=== PATIENT | female | born 1955 | race Caucasian/White ===

== ENCOUNTER → 2016-12-09 | Outpatient (CLI) | payer OTHER, BC ==
[~2016-12-09] MED LIST: AMIT25TA9 PO; BACL1TAB PO; BUPR300T43 PO; CHOL20009 PO; HYDR-4079 PO; LEVO150T9 PO; MELO15TA4 PO; NXM/40 PO; PSYL0.524 PO
--- NOTE | 2016-12-10 05:59 | PAP/PSG TECHNICIAN REPORT ---
[facility] Tension Worker Polysomnogram Report Study name: None Report date: 12/10/2016 Study date: 12/09/2016 Referring Physician: Gil Gusman M.D. Name: KARIS MEDRANO Interpreting Physician: Hilary Gusman M.D. Date of : 1955 Tension Worker: Princess Pizano [facility]. Sex: Female Age: 61 StudyType: PSG PAP Weight: 240 lbs Height: 61 years, Height 5' 6" : BMI: 38.73 Medications: Bethanechol 10 mg, Nexium 40 mg, Lipitor 20 mg, Elavil 100 mg, Fentanyl 25, Levoxyl 125 mcg, Wellbutrin 300 mg, Ultram 50 mg, Strattera 40 mg, Patrizia-Collace, Lioresal 10 mg, Aspirin 81 mg, Vitamin D Patient History 61 yr. old female here for a titration sleep study due to an increased AHI since starting Fentanyl. Patient sleeps in a recliner at home. Patient recently fell asleep on the edge of her chair before butting on her mask, and fell forward hitting her nose. Before that she was visiting her daughter and fell asleep at the side of the bed and fell backwards sleeping with feet dangling over the side of the bed for three hours. Parameters Monitored NPSG: E1-M2, E2-M1, Fp1-M2, Fp2-M1, F3-M2, F4-M2, F4-M1, C3-M2, C4-M2, C4-M1, O1-M2, O2-M2, O2-M1, T3-M2, T4-M1, P3-M2, P4-M1, CHIN1, CHIN2, HR, EKG, Legs, PFLOW, SNOR, FLOW, CFLOW, Tidal Volume, THOR, ABDO, SpO2, PLTH, CPRESS, ETCO2 Wave, ETCO2, pH Sleep Architecture Sleep Stages Time at Lights Off 10:39:15 PM STAGES Time (min.) TST (%) Time at Lights On 5:47:15 AM Wake 44.0 -- Total Recording Time (TRT) 428.00 min. N1 19.0 5 Total Sleep Period (TSP) 423.0 min. N2 156.5 41 Total Sleep Time (TST) 384.0min. N3 131.0 34 Awake Time 44.0 min. REM 77.5 20 Wake after Sleep Onset 39.0 min. Sleep Efficiency (SE) 90 % Sleep Onset Latency (COURT) 5.0 min. Number of Stage 1 Shifts None Awakenings 14 Stage Changes 97 Number of REM periods 10 REM 77.5 20 REM Latency 69.0 min. NREM 306.5 80 Body Position Analysis Supine Right Left Side Prone Vertical Total Sleep Time (min.) 0.0 0.0 0.0 0.00 0.0 428.0 Total Sleep Time (%) 0% 0% 0% 0 0% 100% Total Sleep Time REM (min.) 0.0 0.0 0.0 None 0.0 77.5 Total Sleep Time NREM (min.) 0.0 0.0 0.0 None 0.0 306.5 Intermittent Wake (min.) 0.0 0.0 0.0 None 0.0 44.0 Total Sleep Period (%) 0% None None None None None Arousals Myoclonus (PLM) * Events Count Index Events Count Index Spontaneous 5 1 Events Awake (PLMW) 52 70.9 Respiratory 19 3.6 Events Asleep w/ Arousal (PLMA) 16 2.5 PLM 15 3 Events Asleep w/o Arousal (PLMS) 90 14.1 Snoring 3 0 Total Asleep 106 16.6 Total 42 7 Total 158 22 Respiratory Analysis * CA OA MA CH H RERA Total Count 2 45 0 0 46 0 93 Index 0.3 7.0 0.0 0 7.2 0 14.5 Mean Duration 15.5 52.6 0.0 0.00 31.7 0.0 41.4 Longest Duration 18.8 102.2 0.0 0.00 0.0 0.0 102.2 Respiratory Event Summary Total Supine ~Supine Right Left Prone REM NREM Apneas Count 47 N/A 47 N/A N/A N/A 33 14 Index 7.3 N/A 7 N/A N/A N/A 26 3 Hypopneas (4% Desat) Count 46 N/A 46 N/A N/A N/A 5 41 Index 7.2 N/A 7 N/A N/A N/A 3.9 8.0 Apneas & All Hypopneas Count 93 N/A 93 N/A N/A N/A 38 55 Index 14.5 N/A 15 N/A N/A N/A 29.4 10.8 Respiratory Events (Machine Ironer+All Hyp+RERA) Count 93 N/A 93 N/A N/A N/A 38 55 Index 14.5 N/A 15 N/A N/A N/A 29.4 10.8 Respiratory Related Arousal Count 19 N/A 23 N/A N/A N/A 11 12 Index 3.6 N/A 4 N/A N/A N/A 9 2 Snoring Analysis Supine Right Left Prone REM NREM Total Snore duration 4.1 min Snores count N/A N/A N/A N/A 73 66 139 Snore mean duration 1.8 Sec Snores index N/A N/A N/A N/A 56.5 12.9 21.7 TST with snoring (%) 1.1% Desaturation Event Summary: Minimum %SpO2 Event Count Mean/Min/Max Duration(sec.) Desaturation Index % Time In Bed > 90 82 37.7 / 8.8 / 60.0 13.2 88.6 86 - 90 6 31.7 / 19.5 / 39.0 13.4 6.4 81 - 85 0 N/A 0.0 3.4 76 - 80 0 N/A 0.0 1.2 71 - 75 0 N/A 0.0 0.3 66 - 70 0 N/A 0.0 0.1 61 - 65 0 N/A 0.0 0.0 56 - 60 0 N/A 0.0 0.0 51 - 55 0 N/A 0.0 0.0 < 50 0 N/A 0.0 0.0 Total REM NREM Awake <50% 0.0 min. 0.0 min. 0.0 min. 0.0 min. 51 - 60% 0.0 min. 0.0 min. 0.0 min. 0.0 min. 61 - 70% 0.3 min. 0.2 min. 0.2 min. 0.0 min. 71 - 80% 6.4 min. 2.7 min. 3.0 min. 0.7 min. 81 - 90% 41.3 min. 15.7 min. 23.0 min. 2.6 min. 91 - 100% 372.6 min. 59.0 min. 280.3 min. 33.3 min. Average 93 94 93 95 Minimum SpO2 68 68 68 76 Desaturation Event Index 11.6 15.5 9.6 20.5 # Desat. Events below 89% 49 14 32 3 Time(%) with Saturation below 89% 8.5 3.4 4.4 0.7 Time(min.) with Saturation below 89% 35.6 14.2 18.6 2.8 Time (mins) REM (mins) NREM (mins) % of TST SpO2 Below 90% 50 16 N34 10.0 SpO2 Below 88% 33 0 0 7 Heart Rate Analysis Min (bpm) Max (bpm) Average (bpm) Awake 54 93 75 NREM 56 85 73 REM 53 80 69 Overall 53 85 72 Supplemental O2 Values Minimum O2 level: None Value Start Time End Time Tension Worker Comments MS. Medrano slept in upright position. No cardiac arrhythmia. PLMs noted. No bruxism noted. CPAP was initiated at +4 CMH2O and quickly increase to +12 CMH2O( order stated to start on +12 CMH2O). MS. Medrano was up-titrated to a level of +15 CMH2O Cflex 2, she was having consistent apneas in REM and was switched to BIPAP. IPAP of +20 CMH2O and an EPAP of + 15 CMH2O up-titrated to a level of: IPAP +27 CMH2O, EPAP + 22 CMH20, this did not eliminate events in REM and snores were heard. MS. Pereyra own Katie View full face mask was used. MS. Medrano awoke to use the restroom once during the night. MS. Medrano stated, that was a normal night. The final report will be interpreted and signed by a sleep physician. The completed physician report will then be placed in the patient medical record. Therapy Event: Therapy (cm H20) 4 6 7 8 10 12 13 14 15 Total Time at Pressure (min.) 5.5 7.0 0.2 1.6 3.5 36.2 12.1 8.0 6.9 TST at Pressure (min.) 0.5 3.5 0.2 1.6 2.7 35.6 12.1 8.0 6.4 # Periods 1 1 1 1 1 1 1 1 1 Sleep Onset (min.) 5.0 0.0 0.0 0.0 0.0 0.1 0.0 0.0 0.0 REM Onset (min.) N/A N/A N/A N/A N/A N/A N/A 7.8 0.0 Sleep Efficiency % 9 50 100 100 75 98 100 100 92 Wakefulness (%) 90.6 49.9 0.0 0.0 24.2 1.8 0.0 0.0 7.2 Wakefulness (min.) 5.0 3.5 0.0 0.0 0.9 0.6 0.0 0.0 0.5 NREM 1 (%) 9.4 42.5 0.0 0.0 14.2 2.8 0.0 0.0 21.7 NREM 1 (min.) 0.5 3.0 0.0 0.0 0.5 1.0 0.0 0.0 1.5 NREM 2 (%) 0.0 7.6 100.0 100.0 61.7 58.2 32.5 75.5 44.2 NREM 2 (min.) 0.0 0.5 0.2 1.6 2.2 21.1 3.9 6.0 3.0 NREM 3 (%) 0.0 0.0 0.0 0.0 0.0 37.3 67.5 22.6 0.0 NREM 3 (min.) 0.0 0.0 0.0 0.0 0.0 13.5 8.2 1.8 0.0 REM (%) 0.0 0.0 0.0 0.0 0.0 0.0 0.0 1.9 26.8 REM (min.) 0.0 0.0 0.0 0.0 0.0 0.0 0.0 0.2 1.8 # Arousals 0 1 0 0 2 5 4 2 4 Arousal Index 0.0 17.1 0.0 0.0 44.9 8.4 19.8 15.1 37.5 # Snore 0 0 0 2 2 9 6 5 12 Snore Index 0.0 0.0 0.0 76.3 44.9 15.2 29.6 37.7 112.5 AHI 0.0 17.1 0.0 38.2 44.9 23.6 19.8 45.3 37.5 AHI Supine N/A N/A N/A N/A N/A N/A N/A N/A N/A AHI Non-Supine 0.0 17.1 0.0 38.2 44.9 23.6 19.8 45.3 37.5 NREM AHI 0.0 17.1 0.0 38.2 44.9 23.6 19.8 46.2 39.6 REM AHI N/A N/A N/A N/A N/A N/A N/A 0.0 32.4 RDI 0.0 17.1 0.0 38.2 44.9 23.6 19.8 45.3 37.5 # Obstructive 0 0 0 0 0 0 0 5 3 # Central Ap 0 0 0 0 0 0 0 0 0 # Mixed 0 0 0 0 0 0 0 0 0 # Hypopneas 0 1 0 1 2 14 4 1 1 RERAS 0 0 0 0 0 0 0 0 0 Total Respiratory Events 0 1 0 1 2 14 4 6 4 Time Below SpO2 89.00% (min.) 0.0 0.2 0.0 0.4 0.5 5.0 2.0 1.9 2.7 Mean NREM SpO2 (%) 96 92 92 90 91 92 92 93 90 Mean REM SpO2 (%) N/A N/A N/A N/A N/A N/A N/A 96 88 Mean Sleep SpO2 (%) 96 92 92 90 91 92 92 93 89 Min NREM SpO2 (%) 93 88 90 87 84 78 78 76 68 Min REM SpO2 (%) N/A N/A N/A N/A N/A N/A N/A 91 73 Position Supine (min.) 0.0 0.0 0.0 0.0 0.0 0.0 0.0 0.0 0.0 Position Non-supine (min.) 0.5 3.5 0.2 1.6 2.7 35.6 12.1 8.0 6.4 LM Index Sleep 0.0 34.2 0.0 76.3 67.3 15.2 24.7 45.3 46.9 LM Index NREM 0.0 34.2 0.0 76.3 67.3 15.2 24.7 46.2 39.6 LM Index REM N/A N/A N/A N/A N/A N/A N/A 0.0 64.9 Mean Heart Rate (bpm) 76 74 75 75 73 75 72 71 68 Min Heart Rate (bpm) 72 71 73 72 62 60 59 58 56 Therapy (cm H20) /16 // Total Time at Pressure (min.) 10.2 12.4 17.3 72.6 45.4 47.9 11.2 9.9 120.0 TST at Pressure (min.) 10.2 11.9 17.3 72.1 44.9 46.9 11.2 9.9 89.0 # Periods 1 1 1 1 1 1 1 1 1 Sleep Onset (min.) 0.0 0.0 0.0 0.0 0.0 0.0 0.0 0.0 0.0 REM Onset (min.) 3.0 0.2 0.0 0.0 N/A 46.0 0.0 0.0 0.0 Sleep Efficiency % 100 96 100 99 98 97 100 100 74 Wakefulness (%) 0.0 4.0 0.0 0.7 1.1 2.1 0.0 0.0 25.8 Wakefulness (min.) 0.0 0.5 0.0 0.5 0.5 1.0 0.0 0.0 31.0 NREM 1 (%) 19.5 8.1 2.9 3.4 2.2 1.0 0.0 4.8 3.8 NREM 1 (min.) 2.0 1.0 0.5 2.5 1.0 0.5 0.0 0.5 4.5 NREM 2 (%) 41.4 1.7 0.0 24.2 38.4 16.7 0.0 0.0 58.7 NREM 2 (min.) 4.2 0.2 0.0 17.6 17.4 8.0 0.0 0.0 70.5 NREM 3 (%) 0.0 0.0 0.0 61.3 58.3 76.3 0.0 0.0 0.0 NREM 3 (min.) 0.0 0.0 0.0 44.5 26.5 36.5 0.0 0.0 0.0 REM (%) 39.0 86.2 97.1 10.4 0.0 3.9 100.0 95.2 11.7 REM (min.) 4.0 10.7 16.8 7.5 0.0 1.9 11.2 9.4 14.0 # Arousals 4 1 1 5 2 2 1 2 6 Arousal Index 23.4 5.1 3.5 4.2 2.7 2.6 5.4 12.1 4.0 # Snore 14 15 18 7 4 5 17 16 7 Snore Index 82.0 75.9 62.3 5.8 5.3 6.4 91.0 97.1 4.7 AHI 41.0 40.5 31.2 7.5 6.7 6.4 32.1 36.4 4.0 AHI Supine N/A N/A N/A N/A N/A N/A N/A N/A N/A AHI Non-Supine 41.0 40.5 31.2 7.5 6.7 6.4 32.1 36.4 4.0 NREM AHI 38.4 49.8 0.0 6.5 6.7 5.3 N/A 0.0 2.4 REM AHI 45.0 39.4 32.1 16.0 N/A 32.0 32.1 38.2 12.9 RDI 41.0 40.5 31.2 7.5 6.7 6.4 32.1 36.4 4.0 # Obstructive 6 7 9 2 0 2 6 4 1 # Central Ap 0 0 0 1 0 0 0 0 1 # Mixed 0 0 0 0 0 0 0 0 0 # Hypopneas 1 1 0 6 5 3 0 2 4 RERAS 0 0 0 0 0 0 0 0 0 Total Respiratory Events 7 8 9 9 5 5 6 6 6 Time Below SpO2 89.00% (min.) 3.4 3.0 3.1 2.7 1.2 0.5 4.4 1.6 0.4 Mean NREM SpO2 (%) 91 83 97 93 94 94 N/A 91 94 Mean REM SpO2 (%) 91 94 94 95 N/A 94 90 94 97 Mean Sleep SpO2 (%) 91 93 94 94 94 94 90 94 94 Min NREM SpO2 (%) 68 75 95 85 85 83 N/A 86 83 Min REM SpO2 (%) 79 77 77 79 N/A 84 68 76 85 Position Supine (min.) 0.0 0.0 0.0 0.0 0.0 0.0 0.0 0.0 0.0 Position Non-supine (min.) 10.2 11.9 17.3 72.1 44.9 46.9 11.2 9.9 89.0 LM Index Sleep 52.7 40.5 45.0 6.7 4.0 5.1 53.5 66.7 5.4 LM Index NREM 57.6 49.8 0.0 3.7 4.0 2.7 N/A 0.0 4.8 LM Index REM 45.0 39.4 46.4 31.9 N/A 64.1 53.5 70.1 8.6 Mean Heart Rate (bpm) 67 69 69 75 74 71 68 70 73 Min Heart Rate (bpm) 53 54 53 55 57 56 53 57 59
--- NOTE | 2016-12-18 15:39 | POLYSOMNOGRAPH REPORT ---
CPAP TITRATION STUDY REFERRING PERSON: Dr. Javad Gusman. CORPORATE SECURITY MANAGER: Princess Pizano. Ms. Medrano is a 61-year-old female sent for a CPAP titration study as she started to have increasing AHIs on therapy since starting fentanyl. She sleeps in a recliner at home and will be tested in the upright position on this test. Her [place] sleepiness scale score on the evening of this study is not recorded. BMI is 38.73. Following the technical and digital specifications of the [employer] (AASM) a standard diagnostic polysomnogram was performed monitoring EEG, EOG, EMG (chin and leg deviations), oxygen saturation, body position, digital video, respiratory effort and airflow. The sleep Stage and event scoring was based on the AASM Manual for the Scoring of Sleep and Associated Events 2007 edition. Apneas are defined as a drop in the peak thermal sensor excursion by >90% of baseline for at least 10 seconds. Hypopneas were scored using the 4% oxygen desaturation rule (4A-[employer]) and a decrease in the nasal pressure excursions by >30% of baseline for at least 10 seconds. Respiratory effort-related arousal (RERA's) is defined as a sequence of breaths lasting at least 10 seconds characterized by increasing respiratory effort or flattening of the nasal pressure waveform leading to an arousal from sleep when the sequence of breaths does not meet criteria for an apnea or hypopnea. Apnea Hypopnea index (AHI) is defined as the number of apneas and hypopneas occurring in an hour of sleep. Respiratory disturbance index (RDI) is defined as the number of apneas, hypopneas, and RERA's occurring in an hour of sleep. Ms. Medrano's total sleep period time was 423 minutes. Total sleep time was 384 minutes. Sleep efficiency was 90%. Latency to sleep onset was 5 minutes with wake after sleep onset was 39 minutes. Total non-REM sleep time was 306.5 minutes. She spent 5% of that time in N1 sleep, 41% in N2 sleep and 34% in N3 sleep. REM latency was 69 minutes. Total REM sleep time was 77.5 minutes or 20% of total sleep time. There were 42 cortical arousals from sleep. Five of these arousals were spontaneous, 19 were due to respiratory events, 15 due to periodic limb movements of sleep and 3 were due to snoring. There were 106 periodic limb movements noted on this test. Limb movement index was 16.6. Limb movement with arousal index was 2.5. There were 2 central, 45 obstructive and no mixed apneas noted on this titration. Additionally, there were 46 hypopneas. Apnea-hypopnea index was 14.5. 139 snoring events were recorded. Total sleep time with snoring was 1.1%. Mean saturation was 93% with desaturations briefly to 68 %. Saturations were less than 89% for 35.6 minutes of recorded time. There was no cardiac ectopy noted on this study. Heart rates ranged from a low of 53 beats per minute during sleep to a high of 85 beats per minute. Ms. Medrano slept in the upright position. She was initially started on CPAP therapy and quickly increased to a pressure of 12, which is where the physician order wanted her study to start. She was then increased to 15 for obstructive events which appeared during REM sleep and then was switched to bilevel therapy. She was then titrated on bilevel from 20/15 to a high pressure of 27/22. Central apneas were not noted with the addition of the fentanyl patch. She used her Katie View mask for the titration. On a pressure of 27/22, Ms. Medrano was observed for 89 minutes of sleep. There were 14 minutes of non-supine REM sleep (patient slept upright all night) on this pressure. AHI and RDI on this pressure were 4.0, respectively. Saturations were less than 89 for 0.4 minutes of recorded time. IMPRESSION AND PLAN: A 61-year-old female with a history of obstructive sleep apnea who appears to need bilevel therapy at high pressures of 27/22 to eliminate her obstructive sleep apnea. The addition of a fentanyl patch did not seem to cause central apneas in this patient. I would recommend that she be started on bilevel at 27/22 at home. A download from her machine can be reviewed in 1 month both to check compliance as well as apnea-hypopnea index and further pressure adjustments can occur at that time.
== END | disposition home or self-care (01) ==
LOC: C.NEUR 21:00
PROVIDERS: ATTEND Family Medicine
DX: G47.33 Obstructive sleep apnea (adult) (pediatric) (principal)

== ENCOUNTER 2025-03-15 13:50 | Inpatient (IN) ==
--- NOTE | 2025-03-15 14:00 | Emergency Department Note ---
Impression & Plan AMS (altered mental status), Pulmonary embolism, Acute non-ST elevation myocardial infarction (NSTEMI), Encephalopathy acute ED Provider Note NAME: KARIS SPRAGUE AGE: 69 SEX: F : 1955 ARRIVES VIA: Ambulance INFORMANT: Patient, EMS ED PROVIDER(S): Morris Sousa DO CHIEF COMPLAINT: Altered mental status HPI: The patient is a 69-year-old female who presented to the emergency department for an evaluation. The patient was recently diagnosed with a gallbladder mass. She was felt to have metastatic cancer from this mass. The patient is currently on blood thinners because of a history of pulmonary embolism. There is no reported trauma. The family called 911 because the patient is becoming more obtunded. There was no reported GI bleeding. The patient himself is able to answer some questions. The patient does answer some questions. The patient was noted to have hypoxia. She was placed on escalating oxygen by prehospital personnel. ROS: See above HPI for pertinent positives & negatives. A total of 10 systems reviewed and were otherwise negative. PAST MEDICAL HISTORY: See Below PAST SURGICAL HISTORY: See Below FAMILY HISTORY: See Below SOCIAL HISTORY: See Below HOME MEDICATIONS: See Below ALLERGIES: See Below VITALS: See Below PHYSICAL EXAMINATION: GENERAL: The patient is listless. The patient is slow to respond to questions. EYES: The conjunctivae are clear. The pupils are round and reactive. EARS, NOSE, MOUTH AND THROAT: The nose is without any evidence of any deformity. NECK: The neck is nontender and supple. RESPIRATORY: Diminished breath sounds are noted throughout. There were rales in both lung russell. Shallow respirations were noted. CARDIOVASCULAR: Regular rate and rhythm noted there no murmurs rubs or gallops normal S1 normal S2. GASTROINTESTINAL: T the abdomen is mildly distended. The abdomen is soft. There is right upper quadrant tenderness palpation but no guarding rigidity. MUSCULOSKELETAL/EXTREMITIES: There is no evidence of gross deformity full range of motion is noted in the hips and shoulders. SKIN: Skin is cool and dry. Pedal edema is noted bilaterally. NEUROLOGIC: Patient is awake to verbal commands. She is oriented to person and place but not time or situation. Strength is symmetric. There is no drift in the upper extremities. MEDICAL DECISION MAKING: The patient is a 69-year-old female who presented to the emergency department for an evaluation of altered mental status. The patient was obtunded. This seems to have started late last week. The symptoms have worsened over the course the last 24 hours. The patient arrived to the emergency department. She was obtunded. She was placed on supplemental oxygen as an outpatient but this was weaned down to 2 L in the emergency department. The patient's only real complaint is that she would admit to was right upper quadrant abdominal pain. This appears to not be new and is consistent with her known diagnosis of metastatic cancer. The patient is still awaiting a final diagnosis. I discussed the patient's laboratory and radiographic studies with her and her family. She was not felt to be a good candidate for outpatient workup. For this reason I discussed her condition with the on-call [facility]. They have agreed to evaluate the patient in the emergency department for further management and disposition. Triage Nursing notes reviewed. Prior medical records reviewed Vital Signs: reviewed and remarkable for elevated blood pressure. Differential diagnosis: Infection, hypoglycemia, electrolyte abnormalities, overdose, toxicologic, cardiac sources, intracerebral event, neurologic, trauma, as well as other pathologies. ER treatment provided: See below Diagnostics interpreted by me: ECG: EKG was obtained in the emergency department. My interpretation is normal sinus rhythm at 83 bpm. There is no ectopy. There is no acute ST segment abnormalities noted. QTc was 423 ms. Cardiac Monitoring: An order was placed for continuous cardiac monitoring. The monitor shows a rate of 84 bpm with sinus rhythm. Laboratory studies: As stated above and show below. Imaging studies: See below. Radiographic imaging was reviewed by myself Consultation(s): I discussed this case with Dr. Gregg who is on-call for the [facility] group. ED COURSE: Procedures: none Critical Care: I have personally spent greater than 45 minutes of critical care time in the direct management of this patient. This includes bedside care, interpretation of diagnostic studies, and testing, discussion with consultants, patient, and family members, and other required patient management activities. This 45 minutes is in excess of all separately billable procedures. Past Med/Surg History Problem List (Updated 03/15/25 @ 15:44 by Morris Sousa DO) Encephalopathy acute (Acute) Acute non-ST elevation myocardial infarction (NSTEMI) (Acute) Pulmonary embolism (Acute) AMS (altered mental status) (Acute) Cancer related pain Lesion of liver (Acute) Gallbladder mass (Acute) Hypoxia (Acute) Liver mass Pulmonary embolism (Acute) Fecal retention (Acute) Abdominal pain (Acute) Fecal retention (Acute) Fecal retention (Acute) Medical History DM (diabetes mellitus) MS (multiple sclerosis) Surgical History History of hysterectomy Social History Smoking Status: Former smoker Tobacco Type: Cigarettes Hx Alcohol Use: No Hx Substance Use: No Preferred Language: Czech Communication Ability: Effective [employer] Required: No Beliefs That Will Affect Care: None Current Living Situation: Family Feels Safe at Home: Yes Assistive Devices: Other Allergies Allergies Allergy/AdvReac Type Severity Reaction Status Date / Time Penicillins Allergy Intermediate HIVES Verified 03/15/25 15:24 Sulfa (Sulfonamide Allergy Intermediate HIVES Verified 03/15/25 15:24 Antibiotics) aspirin AdvReac Intermediate NOSE BLEEDS Verified 03/15/25 15:24 propoxyphene AdvReac Intermediate HALLUCINATE Verified 03/15/25 15:24 Home Meds Home Medications Medication Instructions Recorded Confirmed amitriptyline 50 mg tablet 50 mg PO HS 03/06/25 03/15/25 aspirin 81 mg tablet 81 mg PO DAILY 03/06/25 03/15/25 atorvastatin 20 mg tablet (Lipitor) 20 mg PO DAILY 03/06/25 03/15/25 buprenorphine 5 mcg/hour weekly 5 mcg transdermal WK 03/06/25 03/15/25 transdermal patch duloxetine 60 mg capsule,delayed 120 mg PO BID 03/06/25 03/15/25 release levothyroxine 112 mcg tablet 112 mcg PO DAILY 03/06/25 03/15/25 pantoprazole 40 mg tablet,delayed 40 mg PO DAILY 03/06/25 03/15/25 release prucalopride 2 mg tablet 2 mg PO HS 03/06/25 03/15/25 Previous Rx's Medication Instructions Recorded morphine 10 mg/5 mL oral solution 5 mg (2.5 mL) PO Q4H PRN pain 14 03/10/25 days #210 mL pregabalin 75 mg capsule (Lyrica) 75 mg PO TID 30 days #90 caps 03/10/25 apixaban 5 mg tablet (Eliquis) 5 mg PO UD #74 tabs 03/12/25 oxycodone 10 mg tablet 10 mg PO Q8H PRN pain #5 tabs 03/12/25 Results & Data (ED) Vital Signs Vital Signs - 24 hr 03/15/25 13:43 03/15/25 13:51 03/15/25 14:18 Temperature 36.9 C Temperature Source Oral Pulse Rate 90 83 Pulse Rate from SpO2 Sensor Respiratory Rate 21 Blood Pressure 140/79 Blood Pressure Mean 99 Pulse Oximetry 94 94 Oxygen Delivery Method Nasal Cannula Room Air Oxygen Flow Rate 2 Sepsis Recent Fever Within 48 Hours No Sepsis New/Unexplained Change in Mental Status Yes Sepsis Action Taken by Nursing No Action Required 03/15/25 15:00 03/15/25 15:15 03/15/25 15:30 Temperature Temperature Source Pulse Rate 85 84 84 Pulse Rate from SpO2 Sensor 85 84 Respiratory Rate 24 18 24 Blood Pressure 160/85 H 158/87 H 167/94 H Blood Pressure Mean 110 110 118 Pulse Oximetry 95 95 96 Oxygen Delivery Method Nasal Cannula Nasal Cannula Nasal Cannula Oxygen Flow Rate 2 2 2 Sepsis Recent Fever Within 48 Hours Sepsis New/Unexplained Change in Mental Status Sepsis Action Taken by Jail Medications Current Medication List: was personally reviewed by me Laboratory Data Attestation: I reviewed the patient's lab results. 03/15/25 14:01 03/15/25 14:01 Lab Results 03/15/25 03/15/25 Range/Units 14:01 14:14 WBC 11.54 H (4.8-10.8) K/ul RBC 4.34 (4.20-5.40) M/uL Hgb 11.9 L (12.0-16.0) g/dl POC Hgb 13.9 (12.0-16.0) g/dl Hct 38.4 (37.0-47.0) % POC Hct 41 (37-47) % MCV 88.5 (80.0-100.0) fL MCH 27.4 (25.0-34.0) pg MCHC 31.0 L (32.0-36.0) g/dL RDW Std Deviation 47.0 H (36.4-46.3) fL RDW Coeff of [place] 14.6 H (11.5-14.5) % Plt Count 137 (130-400) K/uL MPV 11.0 (9.4-12.4) fL Immature Gran % (Auto) 0.8 % Neut % (Auto) 79.2 % Lymph % (Auto) 7.7 % [place] % (Auto) 9.3 % Eos % (Auto) 2.7 % Baso % (Auto) 0.3 % Neut # (Auto) 9.14 H (1.40-6.50) K/uL Lymph # (Auto) 0.89 L (1.20-3.40) K/uL [place] # (Auto) 1.07 H (0.11-0.59) K/uL Eos # (Auto) 0.31 (0.00-0.50) K/uL Baso # (Auto) 0.04 (0.00-0.20) K/uL Immature Gran # (Auto) 0.09 (0.01-0.20) K/uL PT 12.9 H (9.0-12.0) Seconds INR 1.2 H (0.9-1.1) APTT 32 H (21-31) Seconds PTT Ratio 1.2 VBG pH 7.38 (7.36-7.41) VBG pCO2 49 (38-50) mmHg VBG pO2 26 mmHg VBG HCO3 29 mmol/L VBG O2 Saturation < 60.0 % VBG Base Excess 3.0 mEq/L POC Sodium 135 (135-144) mmol/L Sodium 135 L (136-145) mmol/L POC Potassium 4.0 (3.3-5.0) mmol/L Potassium 4.0 (3.5-5.1) mmol/L POC Chloride 97 L (101-112) mmol/L Chloride 95 L (98-107) mmol/L Carbon Dioxide 28 (21-32) mmol/L POC Total CO2 23 L (24-31) mmol/L Anion Gap 12 H (3-11) POC Anion Gap 20.0 (16-25) mmol/L POC BUN 15 (7-18) mg/dl BUN 15 (6-23) mg/dl Creatinine 1.11 (0.6-1.2) mg/dl POC Creatinine 1.1 (0.6-1.3) mg/dl Est Cr Clr Drug Dosing 63.7 ml/min eGFR 53.81 BUN/Creatinine Ratio 13.5 (10-20) Glucose 147 H (70-99(Fasting)) mg/dl POC Glucose (other) 151 H (70-99) mg/dl Lactate 1.1 (0.4-2.0) mmol/L Calcium 9.7 (8.6-10.3) mg/dl POC Ioniz Calcium Sanjay 1.10 L (1.12-1.32) mmol/l Magnesium 2.2 (1.7-2.4) mg/dl Total Bilirubin 1.1 H (0.2-1.0) mg/dl Direct Bilirubin 0.3 H (0-0.2) mg/dl AST 85 H (13-39) U/L ALT 46 (7-52) U/L Alkaline Phosphatase 262 H (34-104) U/L Ammonia 24.0 (18-72) umol/L Troponin I High Sens 4380.5 H* (0-14) pg/ml Total Protein 8.0 (6.0-8.3) gm/dl Albumin 4.1 (3.4-5.0) gm/dl Procalcitonin 0.15 (0-0.5) ng/ml Administered Medications Discontinued Medications Ioversol (Optiray 320 100ml) 90 ml IV ONCE ONE Stop: 03/15/25 14:43 Last Admin: 03/15/25 14:42 Dose: 90 ml Documented By: DANIELLE Imaging Data Attestation: I personally reviewed and interpreted this imaging study as follows: My Impression: 1 view chest x-ray was obtained in the emergency department. My interpretation is cardiomegaly, final report below. Radiologist's Impression: Chest X-Ray 03/15/25 13:51 Chest radiograph, one view History: Sepsis Comparison: 03/06/2025 Findings: Single AP view of the chest performed. Subtle left basilar atelectasis was also seen on prior CT. No focal consolidation or pleural effusion. No pneumothorax. The cardiomediastinal silhouette is within normal limits. Normal pulmonary vascularity. No evidence for lymphadenopathy. No visualized bony or soft tissue abnormality. Impression: No acute interval change Electronically signed by Dong Garcia 03-15-2025 2:[address] 03/15/25 13:55 CT head without contrast History: AMS Comparison: None Technique: Using multidetector thin collimation helical acquisition technique, axial, coronal and sagittal CT images from the skull base to the vertex were obtained without intravenous contrast. Dose reduction techniques were achieved by using automatic exposure control and/or adjustment of mA and/or kV according to patient size and/or use of iterative reconstruction technique. Findings: No intracranial hemorrhage, mass-effect, or midline shift. The ventricles are proportionate to the cerebral sulci. The persaud to white matter differentiation of the cerebral hemispheres is preserved. The basal cisterns are patent. The visualized paranasal sinuses are clear. Mastoid air cells are clear. Impression: No acute intracranial pathology. Electronically signed by Dong Garcia 03-15-2025 3:51 PM Abdomen/Pelvis CT 03/15/25 14:29 EXAMINATION: CT of the abdomen and pelvis performed after the administration of IV contrast TECHNIQUE: Helical CT images from the lung bases through the symphysis pubis were obtained with contrast. Coronal and sagittal reformatted images were generated at a workstation for further assessment. Dose reduction techniques were achieved by using automatic exposure control and/or adjustment of mA and/or kV according to patient size and/or use of iterative reconstruction technique. COMPARISON: 03/06/2025 HISTORY: Abdominal pain FINDINGS: Lower chest: Bibasilar subsegmental atelectasis. Liver: No change in extensive infiltrate of masslike lesions, especially throughout the anterior right lower lobe portal veins appear patent. Gallbladder: The gallbladder is decompressed. Masslike density occupies the body and fundus of the gallbladder as on prior. No significant biliary ductal dilatation. Spleen: Normal size. Pancreas: No suspicious pancreatic lesions. The pancreatic duct is not dilated. Adrenal glands: No adrenal nodules. Kidneys: No hydronephrosis or obstructing renal stones. Bladder / Pelvic organs: Unremarkable. Bowel: No bowel obstruction. No abnormal bowel wall thickening. The appendix is unremarkable. A large colonic stool burden is suggestive of constipation. Small sliding hiatal hernia, with fluid in the lower esophagus, which may be seen with reflux. Lymph nodes: Pathologic portacaval and retroperitoneal lymph nodes are again seen. Peritoneum / Retroperitoneum: No free fluid or air within the abdomen. Vessels: No infrarenal aortic aneurysm. Heavy aortoiliac calcification. Bones and soft tissues: No suspicious lesion in the bones. IMPRESSION: Stable appearing CT, with infiltrative disease throughout the anterior right lobe of the liver, and also occupying the decompressed gallbladder. Pathologic lymphadenopathy as on prior. Small sliding hiatal hernia, with fluid in the lower esophagus, which may be seen with reflux. Electronically signed by Dong Garcia 03-15-2025 4:01 PM Discharge Plan Visit Data Chief Complaint: Altered Mental Status ED Provider: Morris Sousa Discharge Problem: AMS (altered mental status), Pulmonary embolism, Acute non-ST elevation myocardial infarction (NSTEMI), Encephalopathy acute Patient Disposition: Being Evaluated by Hospitalist Condition: Good Forms Stand Alone Forms: My [facility] Prescriptions Prescriptions: No Action atorvastatin [Lipitor] 20 mg Tablet 20 mg PO DAILY amitriptyline 50 mg Tablet 50 mg PO HS pantoprazole 40 mg Tablet,Delayed Release (Dr/Ec) 40 mg PO DAILY aspirin 81 mg Tablet 81 mg PO DAILY levothyroxine 112 mcg Tablet 112 mcg PO DAILY duloxetine 60 mg Capsule,Delayed Release(Dr/Ec) 120 mg PO BID buprenorphine 5 mcg/hour patch weekly 5 mcg transdermal WK prucalopride 2 mg tablet 2 mg PO HS pregabalin [Lyrica] 75 mg Capsule 75 mg PO TID 30 Days Qty: 90 0RF morphine 10 mg/5 mL solution 5 mg PO Q4H PRN (Reason: pain) 14 Days Qty: 210 0RF Eliquis 5 mg Tablet 5 mg PO UD Qty: 74 2RF Rx Instructions: Start taking Eliquis 10mg twice a day for 1 week and then take 5mg twice a day oxycodone 10 mg tablet 10 mg PO Q8H PRN (Reason: pain) Qty: 5 0RF Referrals Referrals: Adrien Gonzalez MD [Primary Care Provider] -
[2025-03-15 14:18] LABS: Base Excess VBG 3.0 mEq/L; HCO3 VBG 29 mmol/L; Oxygen Saturation VBG < 60.0 %; PCO2 VBG 49 mmHg (38-50); PO2 VBG 26 mmHg; pH VBG 7.38 (7.36-7.41)
[2025-03-15 14:27] LABS: Hematocrit (blood only) 38.4 % (37.0-47.0); Hemoglobin 11.9 g/dl (12.0-16.0); Immature Granulocytes # (auto) 0.09 K/uL (0.01-0.20); Immature Granulocytes % (auto) 0.8 %; Mean Corpuscular Hemoglobin 27.4 pg (25.0-34.0); Mean Corpuscular Volume 88.5 fL (80.0-100.0); Platelet Count 137 K/uL (130-400); RDW Standard Deviation 47.0 fL (36.4-46.3); Red Blood Count 4.34 M/uL (4.20-5.40); White Blood Count 11.54 K/ul (4.8-10.8)
--- NOTE | 2025-03-15 14:27 | XRay Report ---
Chest radiograph, one view History: Sepsis Comparison: 03/06/2025 Findings: Single AP view of the chest performed. Subtle left basilar atelectasis was also seen on prior CT. No focal consolidation or pleural effusion. No pneumothorax. The cardiomediastinal silhouette is within normal limits. Normal pulmonary vascularity. No evidence for lymphadenopathy. No visualized bony or soft tissue abnormality. Impression: No acute interval change Electronically signed by Dong Garcia 03-15-2025 2:27 PM
[2025-03-15] MEDS: OPTIRAY 320 100ml IV ONE (14:42)
[2025-03-15 14:52] LABS: INR 1.2 (0.9-1.1); Partial Thromboplastin Time 32 Seconds (21-31); Prothrombin Time 12.9 Seconds (9.0-12.0)
[2025-03-15 14:56] LABS: Alanine Aminotransferase 46.0 U/L (7-52); Alkaline Phosphatase 262.0 U/L (34-104); Anion Gap 12.0 (3-11); Bilirubin,Total 1.1 mg/dl (0.2-1.0); Blood Urea Nitrogen 15.0 mg/dl (6-23); Calcium 9.7 mg/dl (8.6-10.3); Carbon Dioxide 28.0 mmol/L (21-32); Chloride 95.0 mmol/L (98-107); Creatinine Clr Calc Pharmacy 63.7 ml/min; Glucose 147.0 mg/dl (70-99(Fasting)); Magnesium 2.2 mg/dl (1.7-2.4); Potassium 4.0 mmol/L (3.5-5.1); Sodium 135.0 mmol/L (136-145); Total Protein 8.0 gm/dl (6.0-8.3)
--- NOTE | 2025-03-15 15:52 | CT Scan Report ---
CT head without contrast History: AMS Comparison: None Technique: Using multidetector thin collimation helical acquisition technique, axial, coronal and sagittal CT images from the skull base to the vertex were obtained without intravenous contrast. Dose reduction techniques were achieved by using automatic exposure control and/or adjustment of mA and/or kV according to patient size and/or use of iterative reconstruction technique. Findings: No intracranial hemorrhage, mass-effect, or midline shift. The ventricles are proportionate to the cerebral sulci. The persaud to white matter differentiation of the cerebral hemispheres is preserved. The basal cisterns are patent. The visualized paranasal sinuses are clear. Mastoid air cells are clear. Impression: No acute intracranial pathology. Electronically signed by Dong Garcia 03-15-2025 3:51 PM
--- NOTE | 2025-03-15 16:01 | CT Scan Report ---
EXAMINATION: CT of the abdomen and pelvis performed after the administration of IV contrast TECHNIQUE: Helical CT images from the lung bases through the symphysis pubis were obtained with contrast. Coronal and sagittal reformatted images were generated at a workstation for further assessment. Dose reduction techniques were achieved by using automatic exposure control and/or adjustment of mA and/or kV according to patient size and/or use of iterative reconstruction technique. COMPARISON: 03/06/2025 HISTORY: Abdominal pain FINDINGS: Lower chest: Bibasilar subsegmental atelectasis. Liver: No change in extensive infiltrate of masslike lesions, especially throughout the anterior right lower lobe portal veins appear patent. Gallbladder: The gallbladder is decompressed. Masslike density occupies the body and fundus of the gallbladder as on prior. No significant biliary ductal dilatation. Spleen: Normal size. Pancreas: No suspicious pancreatic lesions. The pancreatic duct is not dilated. Adrenal glands: No adrenal nodules. Kidneys: No hydronephrosis or obstructing renal stones. Bladder / Pelvic organs: Unremarkable. Bowel: No bowel obstruction. No abnormal bowel wall thickening. The appendix is unremarkable. A large colonic stool burden is suggestive of constipation. Small sliding hiatal hernia, with fluid in the lower esophagus, which may be seen with reflux. Lymph nodes: Pathologic portacaval and retroperitoneal lymph nodes are again seen. Peritoneum / Retroperitoneum: No free fluid or air within the abdomen. Vessels: No infrarenal aortic aneurysm. Heavy aortoiliac calcification. Bones and soft tissues: No suspicious lesion in the bones. IMPRESSION: Stable appearing CT, with infiltrative disease throughout the anterior right lobe of the liver, and also occupying the decompressed gallbladder. Pathologic lymphadenopathy as on prior. Small sliding hiatal hernia, with fluid in the lower esophagus, which may be seen with reflux. Electronically signed by Dong Garcia 03-15-2025 4:01 PM
[2025-03-15] MEDS: NALOXONE HCL 0.4 MG/1 ML VIAL/CARP ONE (16:08)
[2025-03-15] MEDS: NALOXONE HCL 0.4 MG/1 ML VIAL/CARP IV STA (16:08)
--- NOTE | 2025-03-15 16:45 | History & Physical Report ---
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 Suspect this is most likely toxic metabolic encephalopathy from the Lyrica and morphine that was initiated on her last hospitalization. Suspect it may have taken a few days for the levels to build up and for her to have significant symptoms. Patient has a chronic dependence on narcotics. Will not give any additional Narcan, will maintain buprenorphine patch to avoid withdrawal symptoms but will hold all other narcotics. Discontinue Lyrica Discontinue hermetic mental status including her may be able to be read to did status improves Scheduled to pain control Toradol IV as needed for pain control again avoid narcotic medications. Patient's troponins and if acutely elevated when compared to suspect this may be demand ischemia in the setting of sumner, need to consider non-STEMI Hold Eliquis started on IV heparin drip Limited echocardiogram to assess ejection Monitor glucose with insulin sliding scale Updated family that pathology report is still not available, however anticipate getting those results within the next few days Family also understands that it may be did occult to manage her pain and avoid need to reassess her overall regimen and as she is full code. History of Present Illness Chief Complaint: Altered mental status, confusion, inability to care for self Primary Care Provider: Adrien Gonzalez MD Patient is a 69-year-old female who was just recently discharged from the hospital on 03/12/2025 where at that time had been diagnosed with a liver mass high concern for cholangiocarcinoma. Patient had returned home with family. She lives with the daughter. Home health was out on Sunday and the patient was doing quite well. She was able to really do a lot on her own and needed minimal assistance. During her last hospitalization the patient was experiencing significant amount of pain in her right upper quadrant had been started on Lyrica and oral morphine to manage her pain in addition to her buprenorphine patch. Patient also had oxycodone at home from previous. Family ports that her pain was pretty well-managed and only needed 1 oxycodone for breakthrough pain a nd her first couple days being at home. However last night, Sunday night, her pain significantly increased. She received 2 doses of her morphine before going to bed last evening. This morning she was a bit more somnolent when awaking. But was complaining of pain and received 1 dose of morphine this morning. This afternoon she was extremely hard to arouse, she was confused she was unable to get herself up and ambulate to the bathroom and was incontinent as they were trying to her assist her to get to the bathroom. This is significant change in her mental status. This prompted family to call 911. In the emergency room laboratory findings were significant for elevated troponin much more elevated than it had been on her last hospitalization. No EKG changes noted. Patient declined any chest pain. Imaging was unremarkable as well. Sepsis laboratory studies were all within normal range. Time of my evaluation the patient was somnolent and extremely difficult to arouse. Most of the history is obtained from the daughter at the bedside. Daughter confirmed history as listed above. They did try to adjust the timing of her Lyrica and on Sunday night she received 150 mg of the Lyrica at bedtime to try and make the timing more favorable for 3 times daily during the day on Sunday without having to dose her in the middle of the night. Daughter reports that the patient has been dependent on narcotics for years and actually had been on extremely high doses of narcotics in the past and I have weaned her down to simply the 5 mg buprenorphine patch prior to this last hospitalization. Daughter is surprised that the amount of morphine that she had received over the last 24 hours would have really caused this amount of effect. During my time of interviewing evaluating the patient I did have the nurse give 0.4 mg of Narcan. With this intervention the patient did become significantly more awake was able to answer questions appropriately and listen in on the conversation and even give some replies. Told drowsy but able to be awake and stay awake. Patient denied any chest pain, no shortness of breath. There is been no fevers or chills. She has been eating normally. She did states she has not had a bowel movement for several days. Is complaining of the right upper quadrant and right flank pain. No new swelling in her hands arms legs or feet and no new joint pains. Allergies Allergy/AdvReac Type Severity Reaction Status Date / Time Penicillins Allergy Intermediate HIVES Verified 03/15/25 15:24 Sulfa (Sulfonamide Allergy Intermediate HIVES Verified 03/15/25 15:24 Antibiotics) aspirin AdvReac Intermediate NOSE BLEEDS Verified 03/15/25 15:24 propoxyphene AdvReac Intermediate HALLUCINATE Verified 03/15/25 15:24 Home Medications Medication Instructions Recorded Confirmed Type amitriptyline 50 mg tablet 50 mg PO HS 03/06/25 03/15/25 History aspirin 81 mg tablet 81 mg PO DAILY 03/06/25 03/15/25 History atorvastatin 20 mg tablet (Lipitor) 20 mg PO DAILY 03/06/25 03/15/25 History buprenorphine 5 mcg/hour weekly 5 mcg transdermal WK 03/06/25 03/15/25 History transdermal patch duloxetine 60 mg capsule,delayed 120 mg PO BID 03/06/25 03/15/25 History release levothyroxine 112 mcg tablet 112 mcg PO DAILY 03/06/25 03/15/25 History pantoprazole 40 mg tablet,delayed 40 mg PO DAILY 03/06/25 03/15/25 History release prucalopride 2 mg tablet 2 mg PO HS 03/06/25 03/15/25 History morphine 10 mg/5 mL oral solution 5 mg (2.5 mL) PO Q4H PRN pain 14 03/10/25 03/15/25 Rx days #210 mL pregabalin 75 mg capsule (Lyrica) 75 mg PO TID 30 days #90 caps 03/10/25 03/15/25 Rx apixaban 5 mg tablet (Eliquis) 5 mg PO UD #74 tabs 03/12/25 03/15/25 Rx oxycodone 10 mg tablet 10 mg PO Q8H PRN pain #5 tabs 03/12/25 03/15/25 Rx Past Med/Surg History Problem List (Updated 03/15/25 @ 16:43 by Ant Macias DO) Chronic narcotic dependence Chronic constipation Toxic metabolic encephalopathy Encephalopathy acute (Acute) Acute non-ST elevation myocardial infarction (NSTEMI) (Acute) Pulmonary embolism (Acute) AMS (altered mental status) (Acute) Cancer related pain Lesion of liver (Acute) Gallbladder mass (Acute) Hypoxia (Acute) Liver mass Pulmonary embolism (Acute) Fecal retention (Acute) Abdominal pain (Acute) Fecal retention (Acute) Fecal retention (Acute) Medical History DM (diabetes mellitus) MS (multiple sclerosis) Surgical History History of hysterectomy Social History Smoking Status: Former smoker Tobacco Type: Cigarettes Hx Alcohol Use: No Hx Substance Use: No Preferred Language: Israeli Communication Ability: Effective Manager Clinical Services Required: No Beliefs That Will Affect Care: None Current Living Situation: Family Feels Safe at Home: Yes Assistive Devices: Other Review of Systems Review of Systems: Pertinent positive and negative review of systems as mentioned in the HPI Physical Exam Physical Exam: Constitutional: Somnolent and lethargic prior to Narcan, more responsive after Narcan. Nontoxic in appearance HEENT: Mucous membranes dry. Sclera clear Neck: Soft, no adenopathy Lungs: Clear to auscultation, decreased, no wheezes rales or rhonchi CV: S1-S2, regular Abdomen: Soft, firm, right upper quadrant tenderness to palpation, no guarding, no rigidity, hepatomegaly Extremities: No significant edema Musculoskeletal: No significant joint tenderness Neuro: Lethargic, oriented to person and place, did follow instructions Psych: Somnolent Results & Data Results & Data Vital Signs (Past 12 Hours) Vital Signs Temp Pulse Resp BP Pulse Ox O2 Del Method O2 Flow Rate 03/15/25 15:54 84 17 176/96 H 97 Nasal Cannula 2 03/15/25 15:39 84 18 174/95 H 96 Nasal Cannula 2 03/15/25 15:30 84 24 167/94 H 96 Nasal Cannula 2 03/15/25 15:15 84 18 158/87 H 95 Nasal Cannula 2 03/15/25 15:00 85 24 160/85 H 95 Nasal Cannula 2 03/15/25 14:18 83 03/15/25 13:51 36.9 C 90 21 140/79 94 Room Air 03/15/25 13:43 94 Nasal Cannula 2 Diagnostic Findings Reviewed imaging, laboratory and diagnostic studies. Pertinent findings as below. CT head, no acute findings CT of the abdomen pelvis no significant changes from previous, did show large stool burden Personally reviewed chest x-ray no infiltrative process Personally reviewed EKG, sinus rhythm, no acute ST-T wave changes WBCs 11.5 Hemoglobin [place] 0.9 Platelets of 137 Coagulation studies reviewed VBG, reviewed within normal ranges Electrolytes stable BUN 15 Creatinine 1.1 Glucose 147 Lactate 1.1 Magnesium 2.2 Ionized calcium 1.1 Total bilirubin 1.1 AST 85 ALT 46 Ammonia 24 Initial troponin 4380.5, significantly increased from 579 previously Procalcitonin 0.15 Code Status & VTE Plan VTE Prophylaxis Plan VTE Prophylaxis will be ordered: No Reason for no VTE drug order: Contraindicated
[2025-03-15] MEDS ORDERED: DEXTROSE 50% 50 ML SYRINGE IV PRN (18:40)
[2025-03-15] MEDS ORDERED: GLUCOSE 40% GEL 15 GM TUBE PO PRN (18:40)
[2025-03-15] MEDS ORDERED: CARBOHYDRATES FOR HYPOGLYCEMIA PO PRN (18:40)
[2025-03-15] MEDS ORDERED: GLUCOSE 10 TAB/TUBE PO PRN (18:40)
[2025-03-15] MEDS ORDERED: GLUCAGON FOR INJ 1 MG VIAL SQ PRN (18:40)
[2025-03-15] MEDS: Heparin IV Adult Wt-Based Standard w/ INITIAL Bolus Protocol IV STA (20:30)
[2025-03-15] MEDS: HEPARIN SOD (PORCINE) 1000 UNIT/ML IV ONE (20:35)
[2025-03-15] MEDS: HEPARIN 25000 UNIT/500 ML D5W 25,000 UNITS/500 ML BAG IV SCH (20:36)
[2025-03-15 20:56] LABS: Appearance Urine Cloudy (Clear); Bacteria Urine Automated 2+ (None Seen); Cast Urine Automated 0-2 /lpf (0-2); Epithelial Cell Urine Auto >20 /hpf (0-2); Glucose Urine UA Negative (Negative); WBC Urine Automated >50 /hpf (0-5)
[2025-03-15] MEDS: INSULIN ASPART PER UNIT CHARGE SC SCH (21:15)
[2025-03-15] MEDS: PRUCALOPRIDE SUCCINATE 2 MG PO SCH (21:16)
[2025-03-15] MEDS: LACTULOSE SYRUP 20 GM/30 ML UDC PO SCH (21:16)
[2025-03-15] MEDS: MAGNESIUM HYDROXIDE SUSP 30 ML UDC PO PRN (21:16)
[2025-03-15] MEDS: ACETAMINOPHEN 500 MG TAB PO SCH (21:18)
[2025-03-15 21:25] LABS: Amphetamines+Metham, Urine Neg (Neg); MDMA (Ecstacy), Urine Neg (Neg); Marijuana, Urine Neg (Neg)
[2025-03-16] MEDS: CHECK BUPRENORPHINE PATCH SCH (00:06)
[2025-03-16 02:35] LABS: Hematocrit (blood only) 35.8 % (37.0-47.0); Hemoglobin 11.4 g/dl (12.0-16.0); Mean Corpuscular Hemoglobin 27.7 pg (25.0-34.0); Mean Corpuscular Volume 86.9 fL (80.0-100.0); Platelet Count 111 K/uL (130-400); RDW Standard Deviation 46.3 fL (36.4-46.3); Red Blood Count 4.12 M/uL (4.20-5.40); White Blood Count 10.91 K/ul (4.8-10.8)
[2025-03-16 02:51] LABS: Alanine Aminotransferase 36.0 U/L (7-52); Alkaline Phosphatase 210.0 U/L (34-104); Anion Gap 6.0 (3-11); Bilirubin,Total 1.2 mg/dl (0.2-1.0); Blood Urea Nitrogen 12.0 mg/dl (6-23); Calcium 9.2 mg/dl (8.6-10.3); Carbon Dioxide 27.0 mmol/L (21-32); Chloride 99.0 mmol/L (98-107); Creatinine Clr Calc Pharmacy 76.9 ml/min; Glucose 164.0 mg/dl (70-99(Fasting)); Potassium 3.5 mmol/L (3.5-5.1); Sodium 132.0 mmol/L (136-145); Total Protein 7.0 gm/dl (6.0-8.3)
[2025-03-16 03:33] LABS: ANTI-Xa, UFH(UnfractionatedHep > 1.50 IU/ml (0.3-0.7)
[2025-03-16 05:24] LABS: ANTI-Xa, UFH(UnfractionatedHep > 1.50 IU/ml (0.3-0.7)
[2025-03-16] MEDS: LEVOTHYROXINE SODIUM 112 MCG TABLET PO SCH (05:43)
[2025-03-16 06:34] LABS: ANTI-Xa, UFH(UnfractionatedHep > 1.50 IU/ml (0.3-0.7)
[2025-03-16 07:13] LABS: ANTI-Xa, UFH(UnfractionatedHep > 1.50 IU/ml (0.3-0.7)
[2025-03-16] MEDS: ASPIRIN 81 MG ECTAB PO SCH (08:50)
[2025-03-16] MEDS: ATORVASTATIN 20 MG TAB PO SCH (08:50)
[2025-03-16] MEDS: POLYETHYLENE (MIRALAX) 17 GM PACK PO SCH (08:59)
[2025-03-16] MEDS: cefTRIAXone SODIUM 2,000 MG/50 ML BAG IV SCH (09:07)
[2025-03-16 09:22] LABS: ANTI-Xa, UFH(UnfractionatedHep > 1.50 IU/ml (0.3-0.7)
[2025-03-16 09:22] LABS: ANTI-Xa, UFH(UnfractionatedHep > 1.50 IU/ml (0.3-0.7)
[2025-03-16 10:23] LABS: ANTI-Xa, UFH(UnfractionatedHep > 1.50 IU/ml (0.3-0.7)
[2025-03-16 10:49] LABS: ANTI-Xa, UFH(UnfractionatedHep > 1.50 IU/ml (0.3-0.7)
[2025-03-16 11:58] LABS: ANTI-Xa, UFH(UnfractionatedHep > 1.50 IU/ml (0.3-0.7)
--- NOTE | 2025-03-16 12:30 | Electrocardiogram Report ---
Test Reason : Blood Pressure : */* mmHG Vent. Rate : 83 BPM Atrial Rate : 83 BPM P-R Int : 144 ms QRS Dur : 76 ms QT Int : 360 ms P-R-T Axes : 53 23 47 degrees QTcB Int : 423 ms Normal sinus rhythm Normal ECG When compared with ECG of 06-Mar-2025 12:34, Criteria for Septal infarct are no longer Present Confirmed by Morris Diaz ([id number]) on 03/16/2025 12:30:26 PM Referred By: REFERRED SELF Confirmed By: Morris Diaz
--- NOTE | 2025-03-16 12:51 | Electrocardiogram Report ---
Test Reason : Blood Pressure : */* mmHG Vent. Rate : 75 BPM Atrial Rate : 75 BPM P-R Int : 142 ms QRS Dur : 78 ms QT Int : 362 ms P-R-T Axes : 54 20 48 degrees QTcB Int : 404 ms Normal sinus rhythm Nonspecific ST and T wave abnormality Abnormal ECG When compared with ECG of 15-Mar-2025 14:04, (unconfirmed) No significant change was found Confirmed by Morris Diaz ([id number]) on 03/16/2025 12:51:02 PM Referred By: REFERRED SELF Confirmed By: Morris Diaz
[2025-03-16 13:23] LABS: ANTI-Xa, UFH(UnfractionatedHep > 1.50 IU/ml (0.3-0.7)
[2025-03-16] MEDS: APIXABAN 5 MG TABLET PO SCH (13:35)
[2025-03-16] MEDS: KETOROLAC TROMETHAMINE 15 MG/ML VIAL IV PRN (14:35)
--- NOTE | 2025-03-16 14:37 | Cardiology Consultation ---
Date of Consultation March 16, 2025 Assessment & Plan (1) Acute non-ST elevation myocardial infarction (NSTEMI): Patient felt to have a type II non-STEMI in the setting of noncardiac illness. She had been discharged on Eliquis 10 mg twice daily for 10 days with plans to then transition to 5 mg twice daily. Upon presentation last evening she had been transition to heparin however monitoring the heparin infusion has been technically limited with elevated anti-Xa levels likely related to high-dose Eliquis therapy. At present I think it is reasonable to transition her back to Eliquis . She denies any symptoms suggestive angina, and I think ongoing medical therapy is the preferred strategy in her case. Would continue aspirin, Eliquis as noted, atorvastatin. Holding off on beta- felicity as her heart rate is already in the 70s and blood pressure is well- controlled at baseline. Questions answered to the patient and her daughter satisfaction. I spent a total of 60 minutes on the date of service in preparation, delivery, and documentation of the care provided to this patient, excluding any time spent in the performance of separately billed services. Siria Gambino DO History of Present Illness Attending Physician: Villa Goldman MD History of Present Illness Christi Medrano Is a 69-year-old female seen in cardiology consultation per the request of Dr. Macias for the evaluation of an elevated troponin level, with concerns of a non-ST segment elevation myocardial infarction. Patient seen in room 207. She was accompanied by her daughter, Jessica, with whom she lives. Patient had recently been hospitalized from 03/06/2025 until 03/12/2025 having presented with right upper quadrant pain, shortness of breath, and pleuritic chest pain of a 3-week duration. A CT angiogram of the chest performed on admission revealed bilateral segmental and subsegmental pulmonary embolism. She was also found to have a DVT in the right calf. CT of abdomen and pelvis revealed numerous ill-defined hypoenhancing hepatic lesions. MR cholangiopancreatography performed 03/07/2025 revealed hepatomegaly with multiple scattered right hepatic lobe lesions. Clinically there was concern for cholangiocarcinoma and the patient underwent ultrasound-guided hepatic biopsy. The results of the pathology are currently pending. At discharge she had been prescribed Lyrica oral morphine and buprenorphine patch. Her daughter describes progressive somnolence and yesterdayS she had been unable to wake her from a nap prompting presentation to the emergency department. She received naloxone in the emergency department, and today her mental status has improved. And is reportedly not quite back to her baseline but she is sitting in the bedside chair and conversant although not quite herself, she is doing much better. She denies any new or worsening chest pain or shortness of breath. The right upper quadrant pain that prompted her most recent hospital stay is controlled at present. Allergies Allergy/AdvReac Type Severity Reaction Status Date / Time Penicillins Allergy Intermediate HIVES Verified 03/15/25 15:24 Sulfa (Sulfonamide Allergy Intermediate HIVES Verified 03/15/25 15:24 Antibiotics) propoxyphene AdvReac Intermediate HALLUCINATE Verified 03/15/25 15:24 Home Medications Medication Instructions Recorded Confirmed Type amitriptyline 50 mg tablet 50 mg PO HS 03/06/25 03/15/25 History aspirin 81 mg tablet 81 mg PO DAILY 03/06/25 03/15/25 History atorvastatin 20 mg tablet (Lipitor) 20 mg PO DAILY 03/06/25 03/15/25 History buprenorphine 5 mcg/hour weekly 5 mcg transdermal WK 03/06/25 03/15/25 History transdermal patch duloxetine 60 mg capsule,delayed 120 mg PO BID 03/06/25 03/15/25 History release levothyroxine 112 mcg tablet 112 mcg PO DAILY 03/06/25 03/15/25 History pantoprazole 40 mg tablet,delayed 40 mg PO DAILY 03/06/25 03/15/25 History release prucalopride 2 mg tablet 2 mg PO HS 03/06/25 03/15/25 History morphine 10 mg/5 mL oral solution 5 mg (2.5 mL) PO Q4H PRN pain 14 03/10/25 03/15/25 Rx days #210 mL pregabalin 75 mg capsule (Lyrica) 75 mg PO TID 30 days #90 caps 03/10/25 03/15/25 Rx apixaban 5 mg tablet (Eliquis) 5 mg PO UD #74 tabs 03/12/25 03/15/25 Rx oxycodone 10 mg tablet 10 mg PO Q8H PRN pain #5 tabs 03/12/25 03/15/25 Rx Patient History Medical History DM (diabetes mellitus) MS (multiple sclerosis) Surgical History History of hysterectomy Social History Smoking Status: Former smoker Tobacco Type: Cigarettes Second Hand Exposure: No; Do You Dip or Chew Tobacco: No; Tobacco Cessation Education Requested by Patient: No Hx Alcohol Use: No Hx Substance Use: No Preferred Language: Nepali Communication Ability: Effective 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 Beliefs That Will Affect Care: None Current Living Situation: Family Other Information That Helps Us Care for You: No Feels Safe at Home: Yes Safety Concerns: Feels Safe At This Time Assistive Devices: Cane, CPAP and Walker Review of Systems Review of Systems: All systems reviewed & are unremarkable except as noted in HPI & below Physical Exam Physical Exam: General: no acute distress and stated age Eyes: conjunctiva are pink and non-injected, sclera clear Neck: normal jugular venous pulse, no hepatojugular reflux Chest: normal shape and normal respiratory effort Lungs: clear to auscultation and percussion Cardiac Exam: - regular heart sounds, no murmurs, rubs, or gallops, no jugular venous distention Abdomen: abdomen soft, non-tender, no abnormal masses and no hepatosplenomegaly Extremities: no edema and no cyanosis Neuro:awake, conversant, follows commands, no focal motor deficits Results & Data Vital Signs (Past 12 Hours) Vital Signs Temp Pulse Pulse Resp BP Pulse Ox O2 Del Method 03/16/25 11:48 36.3 C L 69 20 124/87 100 Room Air 03/16/25 09:11 Room Air, BiPAP 03/16/25 09:08 36.7 C 78 18 128/78 94 Room Air 03/16/25 07:50 36.8 C 83 19 120/72 91 Room Air 03/16/25 07:30 80 03/16/25 03:11 37.2 C 79 18 132/78 90 CPAP Laboratory Results Cardiac Enzymes 03/15/25 03/16/25 Range/Units 19:48 02:11 AST 68 H (13-39) U/L Troponin I High Sens 6300.6 H* D 5896.4 H* (0-14) pg/ml CBC 03/16/25 Range/Units 02:11 WBC 10.91 H (4.8-10.8) K/ul RBC 4.12 L (4.20-5.40) M/uL Hgb 11.4 L (12.0-16.0) g/dl Hct 35.8 L (37.0-47.0) % Plt Count 111 L (130-400) K/uL Comprehensive Metabolic Panel 03/16/25 Range/Units 02:11 Sodium 132 L (136-145) mmol/L Potassium 3.5 (3.5-5.1) mmol/L Chloride 99 (98-107) mmol/L Carbon Dioxide 27 (21-32) mmol/L BUN 12 (6-23) mg/dl Creatinine 0.92 (0.6-1.2) mg/dl Glucose 164 H (70-99(Fasting)) mg/dl Calcium 9.2 (8.6-10.3) mg/dl Direct Bilirubin 0.3 H (0-0.2) mg/dl AST 68 H (13-39) U/L ALT 36 (7-52) U/L Alkaline Phosphatase 210 H (34-104) U/L Total Protein 7.0 (6.0-8.3) gm/dl Albumin 3.6 (3.4-5.0) gm/dl Intake and Output 03/16/25 03/16/25 03/16/25 06:59 14:59 22:59 Intake Total 363 / 713 710 / 710 Output Total 500 / 1500 Balance -137 / -787 710 / 710 Intake: IV 213 / 213 50 / 50 Heparin 77258 Unit/500 ml D5w 213 / 213 0 / 0 25,000 units In 500 ml @ 0 UNITS/HR IV .Q0M PRASHANT Rx#: [id number] SODIUM 2,000 mg In 50 / 50 50 ml @ 100 mls/hr IV Q24H PRASHANT Rx#:[id number] Oral 150 / 500 660 / 660 Output: Urine Amount (Catheter) 500 / 1500 Stinson/Indwelling 500 / 1500 Other: # Unmeasured Voids 1 Weight 116.8 kg 116.8 kg Weight Measurement Method Built in [facility] Patient Weight 03/17/25 06:59 Weight 116.8 kg Diagnostic Findings EKG performed at 8:40 AM and interpreted independently, sinus rhythm at 75 bpm, nonspecific repolarization abnormality. No significant change compared to 03/15/2025 Limited echocardiogram today for reassessment of left ventricular systolic function revealed normal LVEF in the range of 60 to 65% with no regional wall motion abnormalities. The right ventricle was not assessed at a previous and complete echocardiogram was performed on 03/07/2025 LVEF 55 to 60%,. No regional wall motion abnormalities noted, right ventricular chamber size and systolic function grossly normal on technically limited evaluation. PG Care Time/CCT Total # of Minutes Spent Total Time Spent with Patient: Total time spent is greater than 50% in coordination of care (as documented) at patient's floor/unit and/or counseling patient: [place] [address] IN/OBS CONSULT LVL 4,60M Patient Type Established History Comprehensive Exam Comprehensive Medical Decision Making High Complexity Diagnoses Acute non-ST elevation myocardial infarction (NSTEMI) I21.4
--- NOTE | 2025-03-16 14:59 | Hospitalist Progress Note ---
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 Suspect this is most likely toxic metabolic encephalopathy from the Lyrica and morphine that was initiated on her last hospitalization. Suspect it may have taken a few days for the levels to build up and for her to have significant symptoms. Patient has a chronic de pendence on narcotics. Will not give any additional Narcan, will maintain buprenorphine patch to avoid withdrawal symptoms but will hold all other narcotics. Acute metabolic encephalopathy Likely to medications DD: R/O UTI Patient denied any accidental drug overdose --CT Head:No acute intracranial pathology. ---CT ABD:Stable appearing CT, with infiltrative disease throughout the anterior right lobe of the liver, and also occupying the decompressed gallbladder. Pathologic lymphadenopathy as on prior. Small sliding hiatal hernia, with fluid in the lower esophagus, which may be seen with reflux. -- Blood cultures pending --Urine culture pending Discontinued Lyrica, morphine Hold amitriptyline, oxycodone Continue Cymbalta for now Also on buprenorphine Type II AR Troponin elevation -- Limited echo showed no wall motion abnormality Patient denies any chest pain, dyspnea Continue aspirin, statin Appreciate cardiology input Thrombocytopenia Likely due to heparin use Monitor CBC Currently no bleeding issues Multiple Hepatic lesions Possible cholangiocarcinoma Bilateral pulmonary embolism Right LE DVT --Liver Pathology pending Continue Paramjit Will schedule to follow-up with oncology Dr. Brewer as outpatient Ambulatory dysfunction Continue fall precautions Continue PT OT Other chronic conditions: Hyperlipidemiacontinue on Lipitor 20 mg once a day Hypothyroidismcontinue on levothyroxine 112 mcg daily Mood disordercontinue duloxetine 120, amitriptyline on hold Chronic paincontinue on buprenorphine transdermal patch GERDcontinue on Protonix Chronic idiopathic constipationcontinue on prucalopride 2mg evening and miralax DM II : HbA1c 7.2. Insulin sliding scale for now, monitor blood glucose levels Morbid obesity: BMI 41 DVT Px: Eliquis CODE STATUS Full code Disposition PT OT prior to discharge Admission and Anticipated Discharge Date Admission Date: March 15, 2025 Subjective Patient is seen and examined at bedside Mental status seem to be much improved when compared to yesterday Patient admits to have some discomfort of right upper quadrant Was having PT evaluation during my encounter Discussed with patient's daughter at bedside Patient denies any chest pain, dyspnea, dysuria, hematuria Review of Systems Review of Systems: All systems reviewed & are unremarkable except as noted in Subjective Physical Exam Physical Exam: Physical Exam: Vitals signs as noted above General Appearance: Obese, no apparent distress Head: normocephalic, Atraumatic Eyes: normal inspection, EOMI Neck: supple, Trachea midline Respiratory/Chest: Decreased breath sounds, CTA, No accessory muscle use Cardiovascular: S1, S2, No murmur Abdomen/GI:Soft, Non tender, Bowel sounds present Extremities/Musculoskeletal:normal inspection, no edema Neurologic/Psych:AAOX3, grossly no focal neurological deficits Skin: normal color, warm Results & Data Results & Data Vital Signs (Past 12 Hours) Vital Signs Temp Pulse Pulse Resp BP Pulse Ox O2 Del Method 03/16/25 11:48 36.3 C L 69 20 124/87 100 Room Air 03/16/25 09:11 Room Air, BiPAP 03/16/25 09:08 36.7 C 78 18 128/78 94 Room Air 03/16/25 07:50 36.8 C 83 19 120/72 91 Room Air 03/16/25 07:30 80 03/16/25 03:11 37.2 C 79 18 132/78 90 CPAP Laboratory Results Short CBC 03/16/25 Range/Units 02:11 WBC 10.91 H (4.8-10.8) K/ul Hgb 11.4 L (12.0-16.0) g/dl Hct 35.8 L (37.0-47.0) % Plt Count 111 L (130-400) K/uL BMP 03/15/25 03/16/25 14:01 02:11 Sodium 135 L 132 L Potassium 4.0 3.5 Chloride 95 L 99 Carbon Dioxide 28 27 BUN 15 12 Creatinine 1.11 0.92 Glucose 147 H 164 H Calcium 9.7 9.2 Liver Function 03/15/25 03/16/25 Range/Units 14:01 02:11 Total Bilirubin 1.1 H 1.2 H (0.2-1.0) mg/dl Direct Bilirubin 0.3 H 0.3 H (0-0.2) mg/dl AST 85 H 68 H (13-39) U/L ALT 46 36 (7-52) U/L Alkaline Phosphatase 262 H 210 H (34-104) U/L Albumin 4.1 3.6 (3.4-5.0) gm/dl Urine 03/15/25 Range/Units Unknown Urine Color Yellow Urine Appearance Cloudy A (Clear) Urine pH 7.0 (4.5-7.5) Ur Specific [place] 1.041 H (1.000-1.030) Urine Protein Trace H (Negative) Urine Glucose (UA) Negative (Negative)
[2025-03-17 06:51] LABS: Hematocrit (blood only) 36.4 % (37.0-47.0); Hemoglobin 11.8 g/dl (12.0-16.0); Mean Corpuscular Hemoglobin 28.5 pg (25.0-34.0); Mean Corpuscular Volume 87.9 fL (80.0-100.0); Platelet Count 124 K/uL (130-400); RDW Standard Deviation 46.4 fL (36.4-46.3); Red Blood Count 4.14 M/uL (4.20-5.40); White Blood Count 14.82 K/ul (4.8-10.8)
[2025-03-17 07:15] LABS: Anion Gap 11.0 (3-11); Blood Urea Nitrogen 20.0 mg/dl (6-23); Calcium 9.2 mg/dl (8.6-10.3); Carbon Dioxide 25.0 mmol/L (21-32); Chloride 97.0 mmol/L (98-107); Creatinine Clr Calc Pharmacy 62.1 ml/min; Glucose 158.0 mg/dl (70-99(Fasting)); Magnesium 2.1 mg/dl (1.7-2.4); Potassium 4.1 mmol/L (3.5-5.1); Sodium 133.0 mmol/L (136-145)
[2025-03-17] MEDS: SODIUM CHLORIDE 0.9% 1,000 ML IV ONE (09:06)
[2025-03-17 10:14] LABS: Base Excess VBG 0.8 mEq/L; HCO3 VBG 26 mmol/L; Oxygen Saturation VBG < 60.0 %; PCO2 VBG 43 mmHg (38-50); PO2 VBG 26 mmHg; pH VBG 7.39 (7.36-7.41)
--- NOTE | 2025-03-17 10:43 | Cardiology Progress Note ---
Date of Service March 17, 2025 Assessment & Plan (1) Acute non-ST elevation myocardial infarction (NSTEMI): Plan: Patient felt to have a type II non-STEMI in the setting of noncardiac illness. She had been discharged on Eliquis 10 mg twice daily for 10 days with plans to then transition to 5 mg twice daily. Upon presentation last evening she had been transition to heparin however monitoring the heparin infusion has been technically limited with elevated anti-Xa levels likely related to high-dose Eliquis therapy. Patient has been transition back to Eliquis due to difficulty with monitoring/adjusting heparin infusion due to abnormal and Xa levels. Continue aspirin, atorvastatin. No clinical evidence of heart failure. Ejection fraction normal. Heart rate and blood pressure relatively low, and will therefore not initiate beta-felicity therapy. Agree with plans for MRI of the brain for further assessment. Case discussed with Dr Goldman For the purpose of coordination of care. I spent a total of 35 minutes on the date of service in preparation, delivery, and documentation of the care provided to this patient, excluding any time spent in the performance of separately billed services. Siria Gambino, DO Admission and Anticipated Discharge Date Admission Date: March 15, 2025 Subjective Patient seen in cardiology follow-up. Patient more somnolent today. Answers questions minimally. She was unable to provide her name and date of for the minister just prior to my arrival. She wiggles her toes on command, but will not show me 2 fingers with either hand. Daughter, Jessica, is at the bedside and states that her mental status is similar to that which was observed 2 days ago and prompted her to call EMS. Telemetry reveals Sinus rhythm in the 90s Review of Systems Review of Systems: Unobtainable due to cognitive status Physical Exam Physical Exam: General: no acute distress and stated age Eyes: conjunctiva are pink and non-injected, sclera clear Neck: normal jugular venous pulse, no hepatojugular reflux Chest: normal shape and normal respiratory effort Lungs: clear to auscultation and percussion Cardiac Exam: - regular heart sounds, no murmurs, rubs, or gallops, no jugular venous distention Abdomen: abdomen soft, non-tender, no abnormal masses and no hepatosplenomegaly Extremities: no edema and no cyanosis Neuro:Somnolent, minimally arousable Results & Data Vital Signs (Past 12 Hours) Vital Signs Temp Pulse Pulse Resp BP Pulse Ox O2 Del Method 03/17/25 07:42 36.9 C 86 20 108/70 92 Room Air 03/17/25 03:12 36.5 C 91 H 19 105/65 95 Room Air 03/16/25 23:40 85 03/16/25 23:20 36.5 C 84 20 91/62 L 94 Room Air Laboratory Results CBC 03/17/25 Range/Units 05:37 WBC 14.82 H (4.8-10.8) K/ul RBC 4.14 L (4.20-5.40) M/uL Hgb 11.8 L (12.0-16.0) g/dl Hct 36.4 L (37.0-47.0) % Plt Count 124 L (130-400) K/uL Comprehensive Metabolic Panel 03/17/25 Range/Units 05:37 Sodium 133 L (136-145) mmol/L Potassium 4.1 (3.5-5.1) mmol/L Chloride 97 L (98-107) mmol/L Carbon Dioxide 25 (21-32) mmol/L BUN 20 (6-23) mg/dl Creatinine 1.11 (0.6-1.2) mg/dl Glucose 158 H (70-99(Fasting)) mg/dl Calcium 9.2 (8.6-10.3) mg/dl Intake and Output 03/16/25 03/17/25 03/17/25 22:59 06:59 14:59 Intake Total 50 / 50 Output Total 325 / 601 276 / 601 Balance -325 / 109 -276 / 109 50 / 50 Intake: IV 50 / 50 cefTRIAXone SODIUM 2,000 mg In 50 / 50 50 ml @ 100 mls/hr IV Q24H [facility] Rx#:[id number] Output: Urine Amount (Catheter) 325 / 600 275 / 600 Stinson/Indwelling 325 / 600 275 / 600 # Bowel Movements Other: Weight 116.6 kg PG Care Time/CCT Total # of Minutes Spent Total Time Spent with Patient: Total time spent is greater than 50% in coordination of care (as documented) at patient's floor/unit and/or counseling patient: Coding Level of Care Code 65364 SUB INP/OBS CARE 2/35MIN Diagnoses Acute non-ST elevation myocardial infarction (NSTEMI) I21.4
[2025-03-17] MEDS ORDERED: REMOVE & WASTE BUTRANS PATCH 1 EA EA SCH (12:00)
[2025-03-17] MEDS: GADOBUTROL 65ML VIAL IV ONE (12:40)
[2025-03-17] MEDS: BUPRENORPHINE 5 MCG/HR TDSY TD ONE (13:16)
--- NOTE | 2025-03-17 13:47 | Magnetic Resonance Report ---
MRI OF THE BRAIN COMBO CLINICAL HISTORY: Altered mental status. Possible cholangiocarcinoma. Evaluate for metastatic disease . COMPARISON STUDY: MRI of the brain November 10, 2015. Head CT March 15, 2025. TECHNIQUE: MRI of the brain was performed utilizing various T1 and T2-weighted sequences in the axial , sagittal, and coronal planes. Contrast-enhanced sequences were acquired following the administratio n of 11.5 cc of Gadavist. Thin cut T1 post contrast imaging was performed. FINDINGS: This exam is moderately compromised by motion artifact. Note is made of numerous small supr atentorial and infratentorial foci of restricted diffusion. The largest are adjacent linear foci with in the left cerebellar hemisphere which measure up to 1.9 cm. The larger foci are hypointense on the ADC sequence and suggest acute infarct. These do not demonstrate definite enhancement with the except ion of a 3 mm small right parietal lobe enhancing focus on thin cut T1 post contrast image 115 at 164 . Linear enhancement within the cerebellar hemispheres is likely related to vessels. No calvarial les ions are present. Ventricular system is unremarkable. Basal cisterns are patent. There are no extra-a xial collections. IMPRESSION: Numerous small supratentorial and infratentorial foci of restricted diffusion suggestive of acute infarcts. This distribution suggests an embolic etiology. No associated enhancement with the exception of a 3 mm small right parietal lobe focus. This may represent a subacute to acute infarct. Although less likely, a small metastasis cannot be excluded and a short-term follow-up MRI of the br ain in one month to ensure expected evolution is recommended. ACT 112: Negative or not required by law. Electronically signed by: Osman Velazquez M.D. 03/17/2025 1:46 PM
--- NOTE | 2025-03-17 14:41 | Hospitalist Progress Note ---
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 Suspect this is most likely toxic metabolic encephalopathy from the Lyrica and morphine that was initiated on her last hospitalization. Suspect it may have taken a few days for the levels to build up and for her to have significant symptoms. Patient has a chronic de pendence on narcotics. Will not give any additional Narcan, will maintain buprenorphine patch to avoid withdrawal symptoms but will hold all other narcotics. Acute CVA--likely POA ? Embolic in nature due to metastatic disease Acute metabolic encephalopathy --MRI brain:Numerous small supratentorial and infratentorial foci of restricted diffusion suggestive of acute infarcts. This distribution suggests an embolic etiology. No associated enhancement with the exception of a 3 mm small right parietal lobe focus. This may represent a subacute to acute infarct. Although less likely, a small metastasis cannot be excluded and a short-term follow-up MRI of the brain in one month to ensure expected evolution is recommended. --Off note: Patient is not taking aspirin for about 3 days prior to admission per family -- Continue aspirin, statin -- Check echo for bubble study -- Check lipid panel --Continue Paramjit -- Neurology consulted -- PT OT, speech eval Minimize sedating medications until mental status improves (Lyrica, morphine discontinued; hold amitriptyline, oxycodone for now, decreased Cymbalta to 60 mg daily) Abnormal urinalysis Rule out UTI Empirically on IV Rocephin -- Blood culture pending --Urine culture not contributory Requested for repeat Type II [place] Troponin elevation -- Limited echo showed no wall motion abnormality Patient denies any chest pain, dyspnea Continue aspirin, statin Appreciate cardiology input Thrombocytopenia Monitor CBC Currently no bleeding issues Platelet count better today Multiple Hepatic lesions Possible cholangiocarcinoma Bilateral pulmonary embolism Right LE DVT --Liver Pathology pending Continue Paramjit Will schedule to follow-up with oncology Dr. Brewer as outpatient Ambulatory dysfunction Continue fall precautions Continue PT OT Other chronic conditions: Hyperlipidemiacontinue on Lipitor 20 mg once a day Hypothyroidismcontinue on levothyroxine 112 mcg daily Mood disordercontinue duloxetine 120, amitriptyline on hold Chronic paincontinue on buprenorphine transdermal patch GERDcontinue on Protonix Chronic idiopathic constipationcontinue on prucalopride 2mg evening and miralax DM II : HbA1c 7.2. Insulin sliding scale for now, monitor blood glucose levels Morbid obesity: BMI 41 DVT Px: Eliquis CODE STATUS Full code Disposition PT OT prior to discharge Admission and Anticipated Discharge Date Admission Date: March 15, 2025 Subjective Patient is seen and examined at bedside Drowsy, lethargic during my encounter Oriented x 1, follows simple commands Patient denied any chest pain, dyspnea, nausea, vomiting Admits to feeling confused Poor historian Updated patient's daughter in detail at bedside and over the phone Review of Systems Review of Systems: All systems reviewed & are unremarkable except as noted in Subjective Physical Exam Physical Exam: Physical Exam: Vitals signs as noted above General Appearance: Obese, no apparent distress Head: normocephalic, Atraumatic Eyes: normal inspection, EOMI Neck: supple, Trachea midline Respiratory/Chest: Decreased breath sounds, CTA, No accessory muscle use Cardiovascular: S1, S2, No murmur Abdomen/GI:Soft, Non tender, Bowel sounds present Extremities/Musculoskeletal:normal inspection, no edema Neurologic/Psych:AAOX1, drowsy and lethargic, grossly moves all extremities Skin: normal color, warm Results & Data Results & Data Vital Signs (Past 12 Hours) Vital Signs Temp Pulse Resp BP Pulse Ox O2 Del Method 03/17/25 10:57 36.6 C 76 18 112/70 95 Room Air 03/17/25 08:30 Room Air 03/17/25 07:42 36.9 C 86 20 108/70 92 Room Air 03/17/25 03:12 36.5 C 91 H 19 105/65 95 Room Air Laboratory Results Short CBC 03/17/25 Range/Units 05:37 WBC 14.82 H (4.8-10.8) K/ul Hgb 11.8 L (12.0-16.0) g/dl Hct 36.4 L (37.0-47.0) % Plt Count 124 L (130-400) K/uL BMP 03/17/25 05:37 Sodium 133 L Potassium 4.1 Chloride 97 L Carbon Dioxide 25 BUN 20 Creatinine 1.11 Glucose 158 H Calcium 9.2
[2025-03-17 15:39] LABS: Appearance Urine Clear (Clear); Bacteria Urine Automated None Seen (None Seen); Glucose Urine UA Negative (Negative); RBC Urine Automated >20 /hpf (0-2)
[2025-03-17] MEDS ORDERED: CHECK BUPRENORPHINE PATCH SCH (16:00)
--- NOTE | 2025-03-17 16:42 | Neurology Consultation ---
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 She was recently discharged on 03/12/2025 when the liver lesions, pulmonary embolism, and DVT were discovered. Last known well time 03/15/2025. NIHSS 1 for baseline sensory deficits. MRI brain was performed which shows multifocal infarct. Modified Camp scale score baseline 2. #Acute-onset multifocal infarct - recommend CT angiogram head and neck Cr 1.1 - recommend transthoracic echocardiogram - continue apixaban 5 mg twice daily - continue aspirin 81 mg daily, I did advise of slight increase bleed risk while on these 2 medications - check LFT levels - if they are within normal limits, would recommend initiate atorvastatin 80 mg daily - if they are not within normal limits would recommend discontinue atorvastatin and add ezetimibe - routine labs: hemoglobin A1c, LDL - recommend PTOT consult - DVT prophylaxis with SCDs only - permissive hypertension for next 24 hours I discussed my recommendations with Dr. Villa Goldman. Thank you for this consult. Please call with questions. Telehealth Consultation Telehealth Information Telehealth Information: I performed this visit using a real-time telehealth connection between my location and the patients location ([facility]). After connecting through interactive tele-video, patient was identified by name and date of and/or wristband check.Patient (or authorized healthcare farm loan representative) was informed that this was a telemedicine visit and it was being conducted confidentially over secure lines. My office door was closed and no one else was present in the room with me.Patient (or authorized healthcare farm loan representative) provided consent to proceed with the visit, expressed an understanding of privacy and security of the telemedicine visit, and gave permission to have a hospital farm loan representative in the room in order to assist with the visit and to conduct portions of the visit, as needed. I informed the patient (or authorized healthcare farm loan representative) that I reviewed their record and presented the opportunity for them to ask any questions regarding the visit today. The patient agreed to participate. 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 She was recently discharged on 03/12/2025 when the liver lesions, pulmonary embolism, and DVT were discovered. Her daughter is present for the encounter and helps to provide the history. She reports the patient returned home after discharge and was doing okay until the morning of 03/15/2025 when she was less responsive and confused. Her family brought her to the Emergency Department for further evaluation. MRI brain was performed which shows multifocal infarct. NIHSS 1 for baseline sensory deficits. Modified Nghia scale score baseline 2. Allergies Allergy/AdvReac Type Severity Reaction Status Date / Time Penicillins Allergy Intermediate HIVES Verified 03/15/25 15:24 Sulfa (Sulfonamide Allergy Intermediate HIVES Verified 03/15/25 15:24 Antibiotics) propoxyphene AdvReac Intermediate HALLUCINATE Verified 03/15/25 15:24 Home Medications Medication Instructions Recorded Confirmed Type amitriptyline 50 mg tablet 50 mg PO HS 03/06/25 03/15/25 History aspirin 81 mg tablet 81 mg PO DAILY 03/06/25 03/15/25 History atorvastatin 20 mg tablet (Lipitor) 20 mg PO DAILY 03/06/25 03/15/25 History buprenorphine 5 mcg/hour weekly 5 mcg transdermal WK 03/06/25 03/15/25 History transdermal patch duloxetine 60 mg capsule,delayed 120 mg PO BID 03/06/25 03/15/25 History release levothyroxine 112 mcg tablet 112 mcg PO DAILY 03/06/25 03/15/25 History pantoprazole 40 mg tablet,delayed 40 mg PO DAILY 03/06/25 03/15/25 History release prucalopride 2 mg tablet 2 mg PO HS 03/06/25 03/15/25 History morphine 10 mg/5 mL oral solution 5 mg (2.5 mL) PO Q4H PRN pain 14 03/10/25 03/15/25 Rx days #210 mL pregabalin 75 mg capsule (Lyrica) 75 mg PO TID 30 days #90 caps 03/10/25 03/15/25 Rx apixaban 5 mg tablet (Eliquis) 5 mg PO UD #74 tabs 03/12/25 03/15/25 Rx oxycodone 10 mg tablet 10 mg PO Q8H PRN pain #5 tabs 03/12/25 03/15/25 Rx Patient History Medical History DM (diabetes mellitus) MS (multiple sclerosis) Surgical History History of hysterectomy Social History Smoking Status: Former smoker Tobacco Type: Cigarettes Second Hand Exposure: No; Do You Dip or Chew Tobacco: No; Tobacco Cessation Education Requested by Patient: No Hx Alcohol Use: No Hx Substance Use: No Preferred Language: Turkish Communication Ability: Effective Ledge Man Required: No Beliefs That Will Affect Care: None Current Living Situation: Family Other Information That Helps Us Care for You: No Feels Safe at Home: Yes Safety Concerns: Feels Safe At This Time Assistive Devices: Cane, CPAP and Walker Review of Systems ROS reviewed and negative except as above. Physical Exam Physical Exam: General Appearance: Alert HEENT: anicteric sclera, no scleral injection Lungs: respirations appear comfortable, no obvious increased work of breathing Extremities: No cyanosis or fingernail clubbing Skin: No rashes in exposed skin areas Objective Limited due to Televideo encounter Physical Exam: General Appearance: Alert Neurological Examination: Mental status: Alert and oriented. No dysarthria. Able to name and repeat. Cranial Nerves: Visual russell intact. Extraocular movements intact with no nystagmus. Midline gaze. Face symmetric. Sensory: bilateral upper extremity numbness at baseline Motor:Absent pronator drift in bilateral upper extremities. Strength: antigravity in bilateral upper extremities without drift, unable to see bilateral lower extremities due to table positioning but patient denied weakness here. Cerebellar: [id number]-[id number] intact. Unable to assess [id number] due to table positioning. Rapid alternating movements are intact. Results & Data Vital Signs (Past 12 Hours) Vital Signs Temp Pulse Pulse Resp BP Pulse Ox O2 Del Method 03/17/25 14:43 94 H 03/17/25 10:57 36.6 C 76 18 112/70 95 Room Air 03/17/25 08:30 Room Air 03/17/25 07:42 36.9 C 86 20 108/70 92 Room Air Laboratory Results 03/15/25 14:20 Aerobic Blood Culture - Preliminary Blood No growth in Aerobic bottle after 48 hours. Anaerobic Blood Culture - Preliminary No growth in Anaerobic bottle after 48 hours. 03/15/25 14:01 Aerobic Blood Culture - Preliminary Blood No growth in Aerobic bottle after 48 hours. Anaerobic Blood Culture - Preliminary No growth in Anaerobic bottle after 48 hours. 03/15/25 Unknown Urine Culture - Final Urine,Straight Cath More than three types of organisms present, all high counts. Repeat collection recommended. No further identifications or sensitivities to follow. 03/17/25 03/17/25 03/17/25 Unknown 16:18 13:01 WBC RBC Hgb Hct MCV MCH MCHC RDW Std Deviation RDW Coeff of Timi Plt Count MPV VBG pH VBG pCO2 VBG pO2 VBG HCO3 VBG O2 Saturation VBG Base Excess Sodium Potassium Chloride Carbon Dioxide Anion Gap BUN Creatinine Est Cr Clr Drug Dosing eGFR BUN/Creatinine Ratio Glucose POC Glucose 146 H 98 Calcium Magnesium Ammonia Urine Color Dark Yellow Urine Appearance Clear Urine pH 5.5 Ur Specific [place] 1.042 H Urine Protein 1+ H Urine Glucose (UA) Negative Urine Ketones Trace H Urine Blood 2+ H Urine Nitrite Negative Urine Bilirubin Negative Urine Urobilinogen Negative Ur Leukocyte Esterase Trace H Urine WBC (Auto) 6-10 H Urine RBC (Auto) >20 H U Hyaline Cast (Auto) 3-5 H U Epithel Cells (Auto) 3-5 H Urine Bacteria (Auto) None Seen Urine Comment 03/17/25 03/17/25 03/17/25 10:03 07:26 06:10 WBC RBC Hgb Hct MCV MCH MCHC RDW Std Deviation RDW Coeff of Timi Plt Count MPV VBG pH 7.39 VBG pCO2 43 VBG pO2 26 VBG HCO3 26 VBG O2 Saturation < 60.0 VBG Base Excess 0.8 Sodium Potassium Chloride Carbon Dioxide Anion Gap BUN Creatinine Est Cr Clr Drug Dosing eGFR BUN/Creatinine Ratio Glucose POC Glucose 144 H 138 H Calcium Magnesium Ammonia 22.0 Urine Color Urine Appearance Urine pH Ur Specific [place] Urine Protein Urine Glucose (UA) Urine Ketones Urine Blood Urine Nitrite Urine Bilirubin Urine Urobilinogen Ur Leukocyte Esterase Urine WBC (Auto) Urine RBC (Auto) U Hyaline Cast (Auto) U Epithel Cells (Auto) Urine Bacteria (Auto) Urine Comment 03/17/25 03/16/25 05:37 20:44 WBC 14.82 H RBC 4.14 L Hgb 11.8 L Hct 36.4 L MCV 87.9 MCH 28.5 MCHC 32.4 RDW Std Deviation 46.4 H RDW Coeff of Timi 14.4 Plt Count 124 L MPV 12.5 H VBG pH VBG pCO2 VBG pO2 VBG HCO3 VBG O2 Saturation VBG Base Excess Sodium 133 L Potassium 4.1 Chloride 97 L Carbon Dioxide 25 Anion Gap 11 BUN 20 Creatinine 1.11 Est Cr Clr Drug Dosing 62.1 eGFR 53.81 BUN/Creatinine Ratio 18.0 Glucose 158 H POC Glucose 131 H Calcium 9.2 Magnesium 2.1 Ammonia Urine Color Urine Appearance Urine pH Ur Specific [place] Urine Protein Urine Glucose (UA) Urine Ketones Urine Blood Urine Nitrite Urine Bilirubin Urine Urobilinogen Ur Leukocyte Esterase Urine WBC (Auto) Urine RBC (Auto) U Hyaline Cast (Auto) U Epithel Cells (Auto) Urine Bacteria (Auto) Urine Comment Diagnostic Findings Brain MRI 03/17/25 08:04 MRI OF THE BRAIN COMBO IMPRESSION: Numerous small supratentorial and infratentorial foci of restricted diffusion suggestive of acute infarcts. This distribution suggests an embolic etiology. No associated enhancement with the exception of a 3 mm small right parietal lobe focus. This may represent a subacute to acute infarct. Although less likely, a small metastasis cannot be excluded and a short-term follow-up MRI of the brain in one month to ensure expected evolution is recommended. Electronically signed by: Osman Velazquez M.D. 03/17/2025 1:46 PM Medications Administered Home Medications Medication Instructions Recorded Confirmed Last Taken amitriptyline 50 mg tablet 50 mg PO HS 03/06/25 03/15/25 Unknown aspirin 81 mg tablet 81 mg PO DAILY 03/06/25 03/15/25 Unknown atorvastatin 20 mg tablet (Lipitor) 20 mg PO DAILY 03/06/25 03/15/25 Unknown buprenorphine 5 mcg/hour weekly 5 mcg transdermal WK 03/06/25 03/15/25 Unknown transdermal patch duloxetine 60 mg capsule,delayed 120 mg PO BID 03/06/25 03/15/25 Unknown release levothyroxine 112 mcg tablet 112 mcg PO DAILY 03/06/25 03/15/25 Unknown pantoprazole 40 mg tablet,delayed 40 mg PO DAILY 03/06/25 03/15/25 Unknown release prucalopride 2 mg tablet 2 mg PO HS 03/06/25 03/15/25 Unknown morphine 10 mg/5 mL oral solution 5 mg (2.5 mL) PO Q4H PRN pain 14 03/10/25 03/15/25 Unknown days #210 mL pregabalin 75 mg capsule (Lyrica) 75 mg PO TID 30 days #90 caps 03/10/25 03/15/25 Unknown apixaban 5 mg tablet (Eliquis) 5 mg PO UD #74 tabs 03/12/25 03/15/25 Unknown oxycodone 10 mg tablet 10 mg PO Q8H PRN pain #5 tabs 03/12/25 03/15/25 Unknown Active Medications Generic Name Dose Route Start Last Admin Trade Name Freq PRN Reason Stop Dose Admin Acetaminophen 1,000 mg 03/15/25 22:00 03/17/25 13:16 Acetaminophen 500 Mg Tab PO 04/14/25 21:59 1,000 mg Q8 PRASHANT Administration Apixaban 10 mg 03/16/25 12:15 03/17/25 08:46 Apixaban 5 Mg Tablet PO 03/18/25 21:01 10 mg BID PRASHANT Administration Aspirin 81 mg 03/16/25 09:00 03/17/25 08:46 Aspirin 81 Mg Ectab PO 04/15/25 08:59 81 mg DAILY PRASHANT Administration Atorvastatin Calcium 20 mg 03/16/25 09:00 03/17/25 08:47 Atorvastatin 20 Mg Tab PO 04/15/25 08:59 20 mg DAILY PRASHANT Administration Duloxetine HCl 60 mg 03/17/25 09:00 03/17/25 08:47 Duloxetine Hcl 60 Mg Cap PO 04/16/25 08:59 60 mg QAM PRASHANT Administration Ceftriaxone Sodium 2,000 mg in 50 mls @ 100 mls/hr 03/16/25 09:00 03/17/25 0 9:44 Rocephin IV 03/21/25 08:59 Infused Q24H PRASHANT Infusion Sodium Chloride 1,000 mls @ 80 mls/hr 03/17/25 08:27 03/17/25 13:21 Nss IV 03/17/25 20:56 80 mls/hr .[id number] ONE Infusion Insulin Aspart 0 units 03/15/25 21:00 03/17/25 13:18 Insulin Aspart Per Unit Charge SC 04/14/25 20:59 Not Given ACHS PRASHANT Levothyroxine Sodium 112 mcg 03/16/25 06:30 03/17/25 06:22 Levothyroxine Sodium 112 Mcg Tablet PO 04/15/25 06:29 112 mcg DAILYBB PRASHANT Administration Magnesium Hydroxide 30 ml 03/15/25 18:40 03/15/25 21:16 Magnesium Hydroxide Susp 30 Ml Udc PO 04/14/25 18:39 30 ml Q12H PRN Administration Constipation Miscellaneous 1 each 03/16/25 00:00 03/17/25 16:12 Check Buprenorphine Patch N/A 04/15/25 00:00 1 each QS PRASHANT Administration Pantoprazole Sodium 40 mg 03/16/25 09:00 03/17/25 08:47 Pantoprazole 40 Mg Tab PO 04/15/25 08:59 40 mg DAILY PRASHANT Administration Polyethylene Glycol 17 gm 03/16/25 09:00 03/17/25 08:47 Polyethylene (Miralax) 17 Gm Pack PO 04/15/25 08:59 17 gm DAILY PRASHANT Administration Prucalopride 1 each 03/15/25 21:00 03/16/25 20:46 Prucalopride Succinate 2 Mg Tab PO 04/14/25 20:59 1 each HS PRASHANT Administration
[2025-03-17] MEDS: OPTIRAY 320 125ml IV ONE (17:15)
--- NOTE | 2025-03-17 17:32 | CT Scan Report ---
Technique: Axial computed tomography images were obtained of the brain after the administration of intravenous contrast according to the CT angiogram protocol Findings: There is mild plaque within the cavernous and supraclinoid segments of the internal carotid arteries bilaterally, without stenosis No definite stenosis or aneurysm is seen of the anterior, middle, or posterior cerebral artery circulations. The visualized vertebral arteries and the basilar artery appear unremarkable Impression: No definite stenosis or aneurysm of the intracranial arteries Electronically signed by Yunior Chang 03-17-2025 5:31 PM
--- NOTE | 2025-03-17 17:32 | CT Scan Report ---
Technique: Axial computed tomography images were obtained of the neck after the administration of intravenous contrast according to the CT angiogram protocol Findings: No stenosis is seen of the common carotid arteries bilaterally. The carotid bulbs appear normal. The remainder of the internal carotid arteries appear patent bilaterally. No stenosis of the external carotid arteries is seen The vertebral arteries are patent bilaterally with no significant stenosis seen. The visualized thoracic aorta appears unremarkable Impression: No definite stenosis of the neck arteries Electronically signed by Yunior Chang 03-17-2025 5:32 PM
[2025-03-18 06:27] LABS: Hematocrit (blood only) 33.0 % (37.0-47.0); Hemoglobin 10.3 g/dl (12.0-16.0); Mean Corpuscular Hemoglobin 27.2 pg (25.0-34.0); Mean Corpuscular Volume 87.1 fL (80.0-100.0); Platelet Count 128 K/uL (130-400); RDW Standard Deviation 46.4 fL (36.4-46.3); Red Blood Count 3.79 M/uL (4.20-5.40); White Blood Count 11.06 K/ul (4.8-10.8)
[2025-03-18 06:39] LABS: Alanine Aminotransferase 24.0 U/L (7-52); Alkaline Phosphatase 164.0 U/L (34-104); Anion Gap 8.0 (3-11); Bilirubin,Total 0.5 mg/dl (0.2-1.0); Blood Urea Nitrogen 19.0 mg/dl (6-23); Calcium 8.7 mg/dl (8.6-10.3); Carbon Dioxide 23.0 mmol/L (21-32); Chloride 101.0 mmol/L (98-107); Cholesterol 114.0 mg/dl (0-200); Creatinine Clr Calc Pharmacy 73.1 ml/min; Glucose 134.0 mg/dl (70-99(Fasting)); HDL Cholesterol 46.0 mg/dl; Potassium 3.9 mmol/L (3.5-5.1); Sodium 132.0 mmol/L (136-145); Total Protein 6.8 gm/dl (6.0-8.3); Triglycerides 82.0 mg/dl (0-150)
[2025-03-18 07:03] LABS: Hemoglobin A1C 7.3 % (4.5-5.6)
[2025-03-18] MEDS ORDERED: APIXABAN 5 MG TABLET PO SCH (09:00)
--- NOTE | 2025-03-18 12:27 | Cardiology Progress Note ---
Date of Service March 18, 2025 Assessment & Plan (1) AMS (altered mental status): (2) Acute non-ST elevation myocardial infarction (NSTEMI): Plan: (3) Pulmonary embolism: (4) Stroke: (5) Lesion of liver: Plan: 69-year-old female initially presented on 03/15/2025 with right upper quadrant pain, with a pleuritic component. Found to have bilateral segmental subsegmental pulmonary embolism, DVT and a hepatic lesion concerning for malignancy. Underwent ultrasound-guided liver biopsy on 03/11/2025, pathology pending. Patient readmitted 03/15/2025 with somnolence, perhaps multifactorial related to use of narcotic analgesics for pain, possible urinary tract infection, and MRI of the brain performed on for recurrent somnolence revealed numerous small supratentorial and infratentorial foci suggestive of acute infarcts (1) AMS (altered mental status): * Multifactorial as noted above. (2) Acute non-ST elevation myocardial infarction (NSTEMI): * Patient felt to have a type II non-STEMI in the setting of noncardiac illness. She had been discharged on Eliquis 10 mg twice daily for 10 days with plans to then transition to 5 mg twice daily. Upon presentation last evening she had been transitioned to heparin, however monitoring the heparin infusion has been technically limited with elevated anti-Xa levels likely related to high- dose Eliquis therapy and Eliquis resumed. * Continue aspirin, atorvastatin. No clinical evidence of heart failure. Ejection fraction normal. Heart rate and blood pressure relatively low, and will therefore not initiate beta-felicity therapy. (3) Pulmonary embolism: * Continue loading dose of Eliquis 10 mg twice daily, due to transition to 5 mg twice daily as of 03/19/2025 (4) Stroke: * MRI of the brain suggestive of embolic stroke. * Sinus rhythm noted on telemetry * Given findings of pulmonary embolism and DVT last admission, a paradoxical embolism through PFO would certainly be a consideration. Patient had a repeat limited transthoracic echocardiogram on 03/17/2025 with the administration of agitated saline contrast however the resolution was insufficient to rule in or exclude PFO. * Would continue anticoagulation with Eliquis for now. * Future considerations include transesophageal echocardiogram for further evaluation, but would not attempt this due to the risk of sedation causing her to have worsening mental status (5) Lesion of liver: * Pathology still pending I spent a total of 50 minutes on the date of service in preparation, delivery, and documentation of the care provided to this patient, excluding any time spent in the performance of separately billed services. Siria Gambino DO Admission and Anticipated Discharge Date Admission Date: March 15, 2025 Subjective Patient seen in cardiology follow-up. Daughter, Jessica, at the bedside. Telemetry reveals sinus rhythm in the 60s. Patient more alert today. Follows commands, moves extremities on request spontaneously. Physical Exam Physical Exam: General: no acute distress and stated age Eyes: conjunctiva are pink and non-injected, sclera clear Neck: normal jugular venous pulse, no hepatojugular reflux Chest: normal shape and normal respiratory effort Lungs: clear to auscultation and percussion Cardiac Exam: - regular heart sounds, no murmurs, rubs, or gallops, no jugular venous distention Abdomen: abdomen soft, non-tender, no abnormal masses and no hepatosplenomegaly Extremities: no edema and no cyanosis Neuro:Somnolent, minimally arousable Results & Data Vital Signs (Past 12 Hours) Vital Signs Temp Pulse Resp BP Pulse Ox O2 Del Method 03/18/25 03:10 36.9 C 81 17 109/52 L 93 Room Air Laboratory Results Cardiac Enzymes 03/18/25 Range/Units 05:55 AST 28 (13-39) U/L Lipids 03/18/25 Range/Units 05:55 Triglycerides 82 (0-150) mg/dl Cholesterol 114 (0-200) mg/dl HDL Cholesterol 46 mg/dl Cholesterol/HDL Ratio 2.5 (0-5) CBC 03/18/25 Range/Units 05:55 WBC 11.06 H (4.8-10.8) K/ul RBC 3.79 L (4.20-5.40) M/uL Hgb 10.3 L (12.0-16.0) g/dl Hct 33.0 L (37.0-47.0) % Plt Count 128 L (130-400) K/uL Comprehensive Metabolic Panel 03/18/25 Range/Units 05:55 Sodium 132 L (136-145) mmol/L Potassium 3.9 (3.5-5.1) mmol/L Chloride 101 (98-107) mmol/L Carbon Dioxide 23 (21-32) mmol/L BUN 19 (6-23) mg/dl Creatinine 0.94 (0.6-1.2) mg/dl Glucose 134 H (70-99(Fasting)) mg/dl Calcium 8.7 (8.6-10.3) mg/dl Direct Bilirubin 0.1 (0-0.2) mg/dl AST 28 (13-39) U/L ALT 24 (7-52) U/L Alkaline Phosphatase 164 H (34-104) U/L Total Protein 6.8 (6.0-8.3) gm/dl Albumin 3.4 (3.4-5.0) gm/dl Intake and Output 03/17/25 03/18/25 03/18/25 22:59 06:59 14:59 Intake Total 1038 / 1540 50 / 50 Output Total 900 / 1375 475 / 1375 Balance 138 / 165 -475 / 165 50 / 50 Intake: IV 788 / 1050 50 / 50 Sodium Chloride 0.9% 1,000 ml @ 788 / 1000 80 mls/hr IV .[id number] ONE Rx#: [id number] cefTRIAXone SODIUM 2,000 mg In 50 / 50 50 ml @ 100 mls/hr IV Q24H PRASHANT Rx#:[id number] Oral 250 / 490 Output: Urine Amount (Catheter) 900 / 1375 475 / 1375 Stinson/Indwelling 900 / 1375 475 / 1375 Other: Weight 115.9 kg PG Care Time/CCT Total # of Minutes Spent Total Time Spent with Patient: Total time spent is greater than 50% in coordination of care (as documented) at patient's floor/unit and/or counseling patient: Coding Level of Care Code 13588 SUB INP/OBS CARE 3/50MIN Diagnoses AMS (altered mental status) R41.82 Acute non-ST elevation myocardial infarction (NSTEMI) I21.4 Pulmonary embolism I26.99 Acute cor pulmonale presence: without acute cor pulmonale Chronicity: acute Pulmonary embolism type: unspecified Stroke I63.9 Lesion of liver K76.9 (3) Pulmonary embolism Acute cor pulmonale presence: without acute cor pulmonale Chronicity: acute Pulmonary embolism type: unspecified Qualified Code(s): I26.99 - Other pulmonary embolism without acute cor pulmonale
--- NOTE | 2025-03-18 12:37 | Hospitalist Progress Note ---
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 Suspect this is most likely toxic metabolic encephalopathy from the Lyrica and morphine that was initiated on her last hospitalization. Suspect it may have taken a few days for the levels to build up and for her to have significant symptoms. Patient has a chronic dependence on narcotics. Will not give any additional Narcan, will maintain buprenorphine patch to avoid withdrawal symptoms but will hold all other narcotics. Acute CVA--likely POA ? Embolic in nature due to metastatic disease Acute metabolic encephalopathy --MRI brain:Numerous small supratentorial and infratentorial foci of restricted diffusion suggestive of acute infarcts. This distribution suggests an embolic etiology. No associated enhancement with the exception of a 3 mm small right parietal lobe focus. This may represent a subacute to acute infarct. Although less likely, a small metastasis cannot be excluded and a short-term follow-up MRI of the brain in one month to ensure expected evolution is recommended. --Off note: Patient is not taking aspirin for about 3 days prior to admission per family -- Continue aspirin, statin -- Echo for bubble study obtained and reviewed -- lipid panel obtained, LDL 52 -- Continue Eliquis -- Neurology consulted and discussed with, cont. 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 on 03/15/2025 with altered mental status. She was recently discharged on 03/12/2025 when the liver lesions, pulmonary embolism, and DVT were discovered. Last known well time 03/15/2025. NIHSS 1 for baseline sensory deficits. MRI brain was performed which shows multifocal infarct. Modified Brown scale score baseline 2. #Acute-onset multifocal infarct - recommend CT angiogram head and neck Cr 1.1 - obtained - recommend transthoracic echocardiogram - obtained - continue apixaban 5 mg twice daily - continue aspirin 81 mg daily, I did advise of slight increase bleed risk while on these 2 medications - check LFT levels - if they are within normal limits, would recommend initiate atorvastatin 80 mg daily - dose increased - if they are not within normal limits would recommend discontinue atorvastatin and add ezetimibe - routine labs: hemoglobin A1c 7.3% , LDL 52 - recommend PTOT consult Abnormal urinalysis Rule out UTI Empirically on IV Rocephin -- Blood culture pending --Urine culture not contributory Requested for repeat - repeat UA not c/w UTI Type II NM Troponin elevation -- Limited echo showed no wall motion abnormality Patient denies any chest pain, dyspnea Continue aspirin, statin Appreciate cardiology input Thrombocytopenia Monitor CBC Currently no bleeding issues Platelet count improved, currently 128 Multiple Hepatic lesions Possible cholangiocarcinoma Bilateral pulmonary embolism Right LE DVT --Liver Pathology pending Continue Paramjit Will schedule to follow-up with oncology Dr. Brewer as outpatient Ambulatory dysfunction Continue fall precautions Continue PT OT Other chronic conditions: Hyperlipidemiacontinue on Lipitor 20 mg once a day Hypothyroidismcontinue on levothyroxine 112 mcg daily Mood disordercontinue duloxetine 120, amitriptyline on hold Chronic paincontinue on buprenorphine transdermal patch GERDcontinue on Protonix Chronic idiopathic constipationcontinue on prucalopride 2mg evening and miralax DM II : HbA1c 7.2. Insulin sliding scale for now, monitor blood glucose levels Morbid obesity: BMI 41 DVT Px:Eliquis CODE STATUS Full code Disposition PT OT prior to discharge Plan to DC to [facility] Admission and Anticipated Discharge Date Admission Date: March 15, 2025 Subjective Pt seen in follow up of altered mental status Hx of liver mass s/p biopsy Abnormal brain MRI- acute CVA Currently pt is sitting up in chair in NAD, she is awake, alert, and answering appropriately. Her daughter is present at the bedside and also able to provide history. Patient denies any chest pain, dyspnea, abd. pain, nausea, or vomiting Discussed w/ neurology - cont. current management , increase statin dose Review of Systems Review of Systems: All systems reviewed & are unremarkable except as noted in Subjective Physical Exam Physical Exam: General Appearance: Obese elderly F in NAD Head: normocephalic, Atraumatic Eyes: normal inspection, EOMI Neck: supple Respiratory/Chest: Decreased breath sounds, CTA, No accessory muscle use Cardiovascular: S1, S2, No murmur Abdomen/GI: Soft, Non tender, Bowel sounds present Extremities/Musculoskeletal:normal inspection, no edema Neurologic/Psych: awake , alert, speech fluent, answers appropriately, no facial asymmetry noted, moves all extremities Skin: normal color, warm, dry Results & Data Results & Data Vital Signs (Past 12 Hours) Vital Signs Temp Pulse Resp BP Pulse Ox O2 Del Method 03/18/25 03:10 36.9 C 81 17 109/52 L 93 Room Air Laboratory Results 03/18/25 03/18/25 03/18/25 Range/Units 11:41 07:33 05:55 WBC 11.06 H (4.8-10.8) K/ul RBC 3.79 L (4.20-5.40) M/uL Hgb 10.3 L (12.0-16.0) g/dl Hct 33.0 L (37.0-47.0) % MCV 87.1 (80.0-100.0) fL MCH 27.2 (25.0-34.0) pg MCHC 31.2 L (32.0-36.0) g/dL RDW Std Deviation 46.4 H (36.4-46.3) fL RDW Coeff of [place] 14.5 (11.5-14.5) % Plt Count 128 L (130-400) K/uL MPV 11.4 (9.4-12.4) fL Sodium 132 L (136-145) mmol/L Potassium 3.9 (3.5-5.1) mmol/L Chloride 101 (98-107) mmol/L Carbon Dioxide 23 (21-32) mmol/L Anion Gap 8 (3-11) BUN 19 (6-23) mg/dl Creatinine 0.94 (0.6-1.2) mg/dl Est Cr Clr Drug Dosing 73.1 ml/min eGFR 65.68 BUN/Creatinine Ratio 20.2 H (10-20) Glucose 134 H (70-99(Fasting)) mg/dl POC Glucose 117 H 132 H (70-99) mg/dl Estimat Average Glucose 163 mg/dl Hemoglobin A1c 7.3 H (4.5-5.6) % Calcium 8.7 (8.6-10.3) mg/dl Total Bilirubin 0.5 (0.2-1.0) mg/dl Direct Bilirubin 0.1 (0-0.2) mg/dl AST 28 (13-39) U/L ALT 24 (7-52) U/L Alkaline Phosphatase 164 H (34-104) U/L Total Protein 6.8 (6.0-8.3) gm/dl Albumin 3.4 (3.4-5.0) gm/dl Triglycerides 82 (0-150) mg/dl Cholesterol 114 (0-200) mg/dl LDL Cholesterol, Calc 52 mg/dl VLDL Cholesterol, Calc 16 (0-30) mg/dl HDL Cholesterol 46 mg/dl Cholesterol/HDL Ratio 2.5 (0-5) Urine Color Urine Appearance (Clear) Urine pH (4.5-7.5) Ur Specific [place] (1.000-1.030) Urine Protein (Negative) Urine Glucose (UA) (Negative) Urine Ketones (Negative) Urine Blood (Negative) Urine Nitrite (Negative) Urine Bilirubin (Negative) Urine Urobilinogen (Negative) Ur Leukocyte Esterase (Negative) Urine WBC (Auto) (0-5) /hpf Urine RBC (Auto) (0-2) /hpf U Hyaline Cast (Auto) (0-2) /lpf U Epithel Cells (Auto) (0-2) /hpf Urine Bacteria (Auto) (None Seen) Urine Comment 03/17/25 03/17/25 03/17/25 Range/Units Unknown 20:48 16:18 WBC (4.8-10.8) K/ul RBC (4.20-5.40) M/uL Hgb (12.0-16.0) g/dl Hct (37.0-47.0) % MCV (80.0-100.0) fL MCH (25.0-34.0) pg MCHC (32.0-36.0) g/dL RDW Std Deviation (36.4-46.3) fL RDW Coeff of [place] (11.5-14.5) % Plt Count (130-400) K/uL MPV (9.4-12.4) fL Sodium (136-145) mmol/L Potassium (3.5-5.1) mmol/L Chloride (98-107) mmol/L Carbon Dioxide (21-32) mmol/L Anion Gap (3-11) BUN (6-23) mg/dl Creatinine (0.6-1.2) mg/dl Est Cr Clr Drug Dosing ml/min eGFR BUN/Creatinine Ratio (10-20) Glucose (70-99(Fasting)) mg/dl POC Glucose 105 H 146 H (70-99) mg/dl Estimat Average Glucose mg/dl Hemoglobin A1c (4.5-5.6) % Calcium (8.6-10.3) mg/dl Total Bilirubin (0.2-1.0) mg/dl Direct Bilirubin (0-0.2) mg/dl AST (13-39) U/L ALT (7-52) U/L Alkaline Phosphatase (34-104) U/L Total Protein (6.0-8.3) gm/dl Albumin (3.4-5.0) gm/dl Triglycerides (0-150) mg/dl Cholesterol (0-200) mg/dl LDL Cholesterol, Calc mg/dl VLDL Cholesterol, Calc (0-30) mg/dl HDL Cholesterol mg/dl Cholesterol/HDL Ratio (0-5) Urine Color Dark Yellow Urine Appearance Clear (Clear) Urine pH 5.5 (4.5-7.5) Ur Specific [place] 1.042 H (1.000-1.030) Urine Protein 1+ H (Negative) Urine Glucose (UA) Negative (Negative) Urine Ketones Trace H (Negative) Urine Blood 2+ H (Negative) Urine Nitrite Negative (Negative) Urine Bilirubin Negative (Negative) Urine Urobilinogen Negative (Negative) Ur Leukocyte Esterase Trace H (Negative) Urine WBC (Auto) 6-10 H (0-5) /hpf Urine RBC (Auto) >20 H (0-2) /hpf U Hyaline Cast (Auto) 3-5 H (0-2) /lpf U Epithel Cells (Auto) 3-5 H (0-2) /hpf Urine Bacteria (Auto) None Seen (None Seen) Urine Comment 03/17/25 Range/Units 13:01 WBC (4.8-10.8) K/ul RBC (4.20-5.40) M/uL Hgb (12.0-16.0) g/dl Hct (37.0-47.0) % MCV (80.0-100.0) fL MCH (25.0-34.0) pg MCHC (32.0-36.0) g/dL RDW Std Deviation (36.4-46.3) fL RDW Coeff of [place] (11.5-14.5) % Plt Count (130-400) K/uL MPV (9.4-12.4) fL Sodium (136-145) mmol/L Potassium (3.5-5.1) mmol/L Chloride (98-107) mmol/L Carbon Dioxide (21-32) mmol/L Anion Gap (3-11) BUN (6-23) mg/dl Creatinine (0.6-1.2) mg/dl Est Cr Clr Drug Dosing ml/min eGFR BUN/Creatinine Ratio (10-20) Glucose (70-99(Fasting)) mg/dl POC Glucose 98 (70-99) mg/dl Estimat Average Glucose mg/dl Hemoglobin A1c (4.5-5.6) % Calcium (8.6-10.3) mg/dl Total Bilirubin (0.2-1.0) mg/dl Direct Bilirubin (0-0.2) mg/dl AST (13-39) U/L ALT (7-52) U/L Alkaline Phosphatase (34-104) U/L Total Protein (6.0-8.3) gm/dl Albumin (3.4-5.0) gm/dl Triglycerides (0-150) mg/dl Cholesterol (0-200) mg/dl LDL Cholesterol, Calc mg/dl VLDL Cholesterol, Calc (0-30) mg/dl HDL Cholesterol mg/dl Cholesterol/HDL Ratio (0-5) Urine Color Urine Appearance (Clear) Urine pH (4.5-7.5) Ur Specific [place] (1.000-1.030) Urine Protein (Negative) Urine Glucose (UA) (Negative) Urine Ketones (Negative) Urine Blood (Negative) Urine Nitrite (Negative) Urine Bilirubin (Negative) Urine Urobilinogen (Negative) Ur Leukocyte Esterase (Negative) Urine WBC (Auto) (0-5) /hpf Urine RBC (Auto) (0-2) /hpf U Hyaline Cast (Auto) (0-2) /lpf U Epithel Cells (Auto) (0-2) /hpf Urine Bacteria (Auto) (None Seen) Urine Comment Medications Administered Current Inpatient Medications Acetaminophen (Acetaminophen 500 Mg Tab) 1,000 mg PO Q8 PRASHANT Stop: 04/14/25 21:59 Last Admin: 03/18/25 05:14 Dose: 1,000 mg Apixaban (Apixaban 5 Mg Tablet) 10 mg PO BID PRASHANT Stop: 03/18/25 21:01 Last Admin: 03/18/25 09:22 Dose: 10 mg Apixaban (Apixaban 5 Mg Tablet) 5 mg PO BID PRASHANT Stop: 04/18/25 08:59 Aspirin (Aspirin 81 Mg Ectab) 81 mg PO DAILY PRASHANT Stop: 04/15/25 08:59 Last Admin: 03/18/25 09:23 Dose: 81 mg Atorvastatin Calcium (Atorvastatin 20 Mg Tab) 20 mg PO DAILY PRASHANT Stop: 04/15/25 08:59 Last Admin: 03/18/25 09:23 Dose: 20 mg Bisacodyl (Bisacodyl 10 Mg Supp) 10 mg RI DAILY PRN PRN Reason: Constipation Stop: 04/14/25 18:39 Buprenorphine HCl (Buprenorphine 5 Mcg/Hr Tdsy) 1 patch TD Fr@0900 [facility] Stop: 04/19/25 08:59 Dextrose (Dextrose 50% 50 Ml Syringe) 25 - 50 ml IV UD PRN; Protocol PRN Reason: Hypoglycemia Protocol Stop: 04/14/25 18:39 Duloxetine HCl (Duloxetine Hcl 60 Mg Cap) 60 mg PO QAM PRASHANT Stop: 04/16/25 08:59 Last Admin: 03/18/25 09:23 Dose: 60 mg Glucagon (Glucagon For Inj 1 Mg Vial) 1 mg SQ UD PRN; Protocol PRN Reason: Hypoglycemia Protocol Stop: 04/14/25 18:39 Glucose (Glucose 40% Gel 15 Gm Tube) 15 - 30 gm PO UD PRN; Protocol PRN Reason: Hypoglycemia Protocol Stop: 04/14/25 18:39 Glucose (Glucose 10 Tab/Tube) 4 - 8 tab PO UD PRN; Protocol PRN Reason: Hypoglycemia Protocol Stop: 04/14/25 18:39 Ceftriaxone Sodium (Rocephin) 2,000 mg in 50 mls @ 100 mls/hr IV Q24H PRASHANT Stop: 03/21/25 08:59 Last Infusion: 03/18/25 10:10 Dose: Infused Insulin Aspart (Insulin Aspart Per Unit Charge) 0 units SC ACHS PRASHANT Stop: 04/14/25 20:59 Last Admin: 03/18/25 09:20 Dose: 2 units Levothyroxine Sodium (Levothyroxine Sodium 112 Mcg Tablet) 112 mcg PO DAILYBB PRASHANT Stop: 04/15/25 06:29 Last Admin: 03/18/25 05:14 Dose: 112 mcg Magnesium Hydroxide (Magnesium Hydroxide Susp 30 Ml Udc) 30 ml PO Q12H PRN PRN Reason: Constipation Stop: 04/14/25 18:39 Last Admin: 03/15/25 21:16 Dose: 30 ml Miscellaneous (Remove & Waste Butrans Patch 1 Ea Ea) 1 each N/A Q7D PRASHANT Stop: 04/19/25 08:58 Miscellaneous (Check Buprenorphine Patch) 1 each N/A QS PRASHANT Stop: 04/15/25 00:00 Last Admin: 03/18/25 09:39 Dose: 1 each Miscellaneous (Carbohydrates For Hypoglycemia ) 15 - 30 gm PO UD PRN PRN Reason: Hypoglycemia Protocol Stop: 04/14/25 18:39 Pantoprazole Sodium (Pantoprazole 40 Mg Tab) 40 mg PO DAILY PRASHANT Stop: 04/15/25 08:59 Last Admin: 03/18/25 09:23 Dose: 40 mg Polyethylene Glycol (Polyethylene (Miralax) 17 Gm Pack) 17 gm PO DAILY PRASHANT Stop: 04/15/25 08:59 Last Admin: 03/18/25 09:23 Dose: 17 gm Prucalopride (Prucalopride Succinate 2 Mg Tab) 1 each PO HS PRASHANT Stop: 04/14/25 20:59 Last Admin: 03/17/25 20:43 Dose: 1 each
[2025-03-19 05:54] LABS: Hematocrit (blood only) 32.6 % (37.0-47.0); Hemoglobin 10.3 g/dl (12.0-16.0); Mean Corpuscular Hemoglobin 27.2 pg (25.0-34.0); Mean Corpuscular Volume 86.2 fL (80.0-100.0); Platelet Count 143 K/uL (130-400); RDW Standard Deviation 45.6 fL (36.4-46.3); Red Blood Count 3.78 M/uL (4.20-5.40); White Blood Count 10.91 K/ul (4.8-10.8)
[2025-03-19 06:17] LABS: Calcium 9.1 mg/dl (8.6-10.3); Carbon Dioxide 22.0 mmol/L (21-32); Magnesium 2.0 mg/dl (1.7-2.4)
[2025-03-19 06:23] LABS: Blood Urea Nitrogen 17.0 mg/dl (6-23); Creatinine Clr Calc Pharmacy 81.8 ml/min; Glucose 116.0 mg/dl (70-99(Fasting))
[2025-03-19 06:33] LABS: Anion Gap 11.0 (3-11); Chloride 101.0 mmol/L (98-107); Potassium 3.9 mmol/L (3.5-5.1); Sodium 134.0 mmol/L (136-145)
[2025-03-19 07:10] VITALS: RESP 18; TEMP 97.7; O2SAT 96
[2025-03-19] MEDS: APIXABAN 5 MG TABLET PO SCH (08:35)
[2025-03-19] MEDS: ATORVASTATIN 40 MG TAB PO SCH (08:37)
--- NOTE | 2025-03-19 10:30 | Discharge Summary ---
Date of Service March 19, 2025 Admission HPI Per Admitting Provider Patient is a 69-year-old female who was just recently discharged from the hospital on 03/12/2025 where at that time had been diagnosed with a liver mass high concern for cholangiocarcinoma. Patient had returned home with family. She lives with the daughter. Home health was out on Sunday and the patient was doing quite well. She was able to really do a lot on her own and needed minimal assistance. During her last hospitalization the patient was experiencing significant amount of pain in her right upper quadrant had been started on Lyrica and oral morphine to manage her pain in addition to her buprenorphine patch. Patient also had oxycodone at home from previous. Family ports that her pain was pretty well-managed and only needed 1 oxycodone for breakthrough pain and her first couple days being at home. However last night, Sunday night, her pain significantly increased. She received 2 doses of her morphine before going to bed last evening. This morning she was a bit more somnolent when awaking. But was complaining of pain and received 1 dose of morphine this morning. This afternoon she was extremely hard to arouse, she was confused she was unable to get herself up and ambulate to the bathroom and was incontinent as they were trying to her assist her to get to the bathroom. This is significant change in her mental status. This prompted family to call 911. In the emergency room laboratory findings were significant for elevated troponin much more elevated than it had been on her last hospitalization. No EKG changes noted. Patient declined any chest pain. Imaging was unremarkable as well. Sepsis laboratory studies were all within normal range. Time of my evaluation the patient was somnolent and extremely difficult to arouse. Most of the history is obtained from the daughter at the bedside. Daughter confirmed history as listed above. They did try to adjust the timing of her Lyrica and on Sunday night she received 150 mg of the Lyrica at bedtime to try and make the timing more favorable for 3 times daily during the day on Sunday without having to dose her in the middle of the night. Daughter reports that the patient has been dependent on narcotics for years and actually had been on extremely high doses of narcotics in the past and I have weaned her down to simply the 5 mg buprenorphine patch prior to this last hospitalization. Daughter is surprised that the amount of morphine that she had received over the last 24 hours would have really caused this amount of effect. During my time of interviewing evaluating the patient I did have the nurse give 0.4 mg of Narcan. With this intervention the patient did become significantly more awake was able to answer questions appropriately and listen in on the conversation and even give some replies. Told drowsy but able to be awake and stay awake. Patient denied any chest pain, no shortness of breath. There is been no fevers or chills. She has been eating normally. She did states she has not had a bowel movement for several days. Is complaining of the right upper quadrant and right flank pain. No new swelling in her hands arms legs or feet and no new joint pains. Admission Exam Per Admitting Provider Constitutional: Somnolent and lethargic prior to Narcan, more responsive after Narcan. Nontoxic in appearance HEENT: Mucous membranes dry. Sclera clear Neck: Soft, no adenopathy Lungs: Clear to auscultation, decreased, no wheezes rales or rhonchi CV: S1-S2, regular Abdomen: Soft, firm, right upper quadrant tenderness to palpation, no guarding, no rigidity, hepatomegaly Extremities: No significant edema Musculoskeletal: No significant joint tenderness Neuro: Lethargic, oriented to person and place, did follow instructions Psych: Somnolent Principal Diagnosis Encephalopathy Acute CVA NSTEMI Hx of liver mass s/p biopsy, results pending Discharge Exam General Appearance: Obese elderly F in NAD Head: normocephalic, Atraumatic Eyes: normal inspection, EOMI Neck: supple Respiratory/Chest: Decreased breath sounds, CTA, No accessory muscle use Cardiovascular: S1, S2, No murmur Abdomen/GI: Soft, Non tender, Bowel sounds present Extremities/Musculoskeletal:normal inspection, no edema Neurologic/Psych: awake , alert, speech fluent, answers appropriately, no facial asymmetry noted, moves all extremities Skin: normal color, warm, dry Discharge Data Allergies Allergy/AdvReac Type Severity Reaction Status Date / Time Penicillins Allergy Intermediate HIVES Verified 03/15/25 15:24 Sulfa (Sulfonamide Allergy Intermediate HIVES Verified 03/15/25 15:24 Antibiotics) propoxyphene AdvReac Intermediate HALLUCINATE Verified 03/15/25 15:24 Consultations 03/15/25 15:36 ED Decision to Admit Stat 03/15/25 18:40 Consult Cardiology Routine 03/17/25 14:14 Consult Neurology Routine Ordered Studies 03/15/25 13:55 CT head/brain wo con Stat Findings: No intracranial hemorrhage, mass-effect, or midline shift. The ventricles are proportionate to the cerebral sulci. The persaud to white matter differentiation of the cerebral hemispheres is preserved. The basal cisterns are patent. The visualized paranasal sinuses are clear. Mastoid air cells are clear. Impression: No acute intracranial pathology. 03/15/25 14:29 CT abd pelvis IV con only Stat FINDINGS: Lower chest: Bibasilar subsegmental atelectasis. Liver: No change in extensive infiltrate of masslike lesions, especially throughout the anterior right lower lobe portal veins appear patent. Gallbladder: The gallbladder is decompressed. Masslike density occupies the body and fundus of the gallbladder as on prior. No significant biliary ductal dilatation. Spleen: Normal size. Pancreas: No suspicious pancreatic lesions. The pancreatic duct is not dilated. Adrenal glands: No adrenal nodules. Kidneys: No hydronephrosis or obstructing renal stones. Bladder / Pelvic organs: Unremarkable. Bowel: No bowel obstruction. No abnormal bowel wall thickening. The appendix is unremarkable. A large colonic stool burden is suggestive of constipation. Small sliding hiatal hernia, with fluid in the lower esophagus, which may be seen with reflux. Lymph nodes: Pathologic portacaval and retroperitoneal lymph nodes are again seen. Peritoneum / Retroperitoneum: No free fluid or air within the abdomen. Vessels: No infrarenal aortic aneurysm. Heavy aortoiliac calcification. Bones and soft tissues: No suspicious lesion in the bones. IMPRESSION: Stable appearing CT, with infiltrative disease throughout the anterior right lobe of the liver, and also occupying the decompressed gallbladder. Pathologic lymphadenopathy as on prior. Small sliding hiatal hernia, with fluid in the lower esophagus, which may be seen with reflux. 03/17/25 08:04 MRI Brain [MR brain wo/w con] Urgent FINDINGS: This exam is moderately compromised by motion artifact. Note is made of numerous small supratentorial and infratentorial foci of restricted diffusion. The largest are adjacent linear foci within the left cerebellar hemisphere which measure up to 1.9 cm. The larger foci are hypointense on the ADC sequence and suggest acute infarct. These do not demonstrate definite enhancement with the exception of a 3 mm small right parietal lobe enhancing focus on thin cut T1 post contrast image 115 at 164. Linear enhancement within the cerebellar hemispheres is likely related to vessels. No calvarial lesions are present. Ventricular system is unremarkable. Basal cisterns are patent. Th ere are no extra-axial collections. IMPRESSION: Numerous small supratentorial and infratentorial foci of restricted diffusion suggestive of acute infarcts. This distribution suggests an embolic etiology. No associated enhancement with the exception of a 3 mm small right parietal lobe focus. This may represent a subacute to acute infarct. Although less likely, a small metastasis cannot be excluded and a short-term follow-up MRI of the brain in one month to ensure expected evolution is recommended. 03/17/25 15:26 CT angio head w con Routine Findings: There is mild plaque within the cavernous and supraclinoid segments of the internal carotid arteries bilaterally, without stenosis No definite stenosis or aneurysm is seen of the anterior, middle, or posterior cerebral artery circulations. The visualized vertebral arteries and the basilar artery appear unremarkable Impression: No definite stenosis or aneurysm of the intracranial arteries CTA neck with con [CT angio neck with con] Routine Findings: No stenosis is seen of the common carotid arteries bilaterally. The carotid bulbs appear normal. The remainder of the internal carotid arteries appear patent bilaterally. No stenosis of the external carotid arteries is seen The vertebral arteries are patent bilaterally with no significant stenosis seen. The visualized thoracic aorta appears unremarkable Impression: No definite stenosis of the neck arteries Hospital Course (1) Toxic metabolic encephalopathy: Initially felt AMS d/t morphine and Lyrica in the setting of liver metastasis/cancer However brain MRI w/ acute CVA - so likely combination of all/ multifactorial (2) Acute non-ST elevation myocardial infarction (NSTEMI): (3) Pulmonary embolism: (4) Cancer related pain: (5) Lesion of liver: (6) Gallbladder mass: (7) Chronic constipation: (8) DM (diabetes mellitus): (9) Chronic narcotic dependence: Plan Patient 69 yo F with suspected cholangiocarcinoma with metastatic lesions presents with altered mental status. Suspect this is most likely toxic metabolic encephalopathy from the Lyrica and morphine that was initiated on her last hospitalization. Suspect it may have taken a few days for the levels to build up and for her to have significant symptoms. Patient has a chronic dependence on narcotics. Will not give any additional Narcan, will maintain buprenorphine patch to avoid withdrawal symptoms but will hold all other narcotics. Acute CVA--likely POA ? Embolic in nature due to metastatic disease Acute metabolic encephalopathy --MRI brain:Numerous small supratentorial and infratentorial foci of restricted diffusion suggestive of acute infarcts. This distribution suggests an embolic etiology. No associated enhancement with the exception of a 3 mm small right parietal lobe focus. This may represent a subacute to acute infarct. Although less likely, a small metastasis cannot be excluded and a short-term follow-up MRI of the brain in one month to ensure expected evolution is recommended. --Off note: Patient is not taking aspirin for about 3 days prior to admission per family -- Continue aspirin, statin -- Echo for bubble study obtained and reviewed -- lipid panel obtained, LDL 52 -- Continue Eliquis -- Neurology consulted and discussed with, cont. 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 She was recently discharged on 03/12/2025 when the liver lesions, pulmonary embolism, and DVT were discovered. Last known well time 03/15/2025. NIHSS 1 for baseline sensory deficits. MRI brain was performed which shows mult ifocal infarct. Modified Lanier scale score baseline 2. #Acute-onset multifocal infarct - recommend CT angiogram head and neck Cr 1.1 - obtained - recommend transthoracic echocardiogram - obtained - continue apixaban 5 mg twice daily - continue aspirin 81 mg daily, I did advise of slight increase bleed risk while on these 2 medications - check LFT levels - if they are within normal limits, would recommend initiate atorvastatin 80 mg daily - dose increased - if they are not within normal limits would recommend discontinue atorvastatin and add ezetimibe - routine labs: hemoglobin A1c 7.3% , LDL 52 - recommend PT/OT consult Abnormal urinalysis Rule out UTI Empirically on IV Rocephin -- Blood culture pending --Urine culture inconclusive Requested for repeat - repeat UA not c/w UTI finish abx course w/ po Type II DC Troponin elevation -- Limited echo showed no wall motion abnormality Patient denies any chest pain, dyspnea Continue aspirin, statin Appreciate cardiology input Thrombocytopenia Monitor CBC Currently no bleeding issues Platelet count improved, currently 143 Multiple Hepatic lesions Possible cholangiocarcinoma Bilateral pulmonary embolism Right LE DVT --Liver Pathology pending Continue Eliquis follow-up with oncology Dr. Brewer as outpatient Ambulatory dysfunction Continue fall precautions Continue PT OT Other chronic conditions: Hyperlipidemia statin dose increased as above Hypothyroidismcontinue on levothyroxine 112 mcg daily Mood disordercontinue duloxetine 120, amitriptyline on hold Chronic paincontinue on buprenorphine transdermal patch GERDcontinue on Protonix Chronic idiopathic constipationcontinue on prucalopride 2mg evening and miralax DM II : HbA1c 7.2. Insulin sliding scale for now, monitor blood glucose levels Morbid obesity: BMI 41 Plan to DC to [facility] Total Time Total Time Spent Total Time Spent (In Minutes): 40 Discharge Plan Discharge Items Patient Disposition: Transfer Acute Care Hospital Reason For Visit: TOXIC ENCEPHALOPATHY Discharge Diagnosis: Encephalopathy Acute CVA NSTEMI Hx of liver mass s/p biopsy, results pending Condition on Discharge: Good Activity: Per Instructions section Non-emergency contact: Primary Care Provider Call non-emergency contact if: you have any medication questions and your symptoms worsen Follow-up/Referrals: Adrien Gonzalez MD [Primary Care Provider] - Cecil Brewer MD [Physician] - 03/26/25 1:20 pm Diet: Carb Consistent or DM2 and Heart Healthy Addtl Attending Provider Instructions: Follow up with primary care doctor and oncologist. Take Eliquis 5 mg BID. Continue taking aspirin 81 mg daily. Your atorvastatin was increased to 80 mg. Pending Studies at Discharge: Yes Studies:: Blood cultx results Stand-Alone Forms: [facility] Sk[facility] Items Patient informed of condition?: Yes DNR: No Discharge Level of Care: Acute rehab Communicable Disease: No Discharge Prognosis: Stable Lines: None Urinary Catheter: No Medications and DC Order Prescriptions: New atorvastatin 80 mg tablet 80 mg PO HS Qty: 30 0RF duloxetine 60 mg Capsule,Delayed Release(Dr/Ec) 60 mg PO QAM Qty: 30 0RF oxycodone 5 mg tablet 5 mg PO Q8H PRN (Reason: pain) Qty: 20 0RF cefuroxime axetil 250 mg tablet 250 mg PO BID Qty: 4 0RF Continued amitriptyline 50 mg Tablet 50 mg PO HS pantoprazole 40 mg Tablet,Delayed Release (Dr/Ec) 40 mg PO DAILY aspirin 81 mg Tablet 81 mg PO DAILY levothyroxine 112 mcg Tablet 112 mcg PO DAILY buprenorphine 5 mcg/hour patch weekly 5 mcg transdermal WK prucalopride 2 mg tablet 2 mg PO HS Eliquis 5 mg Tablet 5 mg PO UD Qty: 74 2RF Rx Instructions: Start taking Eliquis 10mg twice a day for 1 week and then take 5mg twice a day Discontinued atorvastatin [Lipitor] 20 mg Tablet 20 mg PO DAILY duloxetine 60 mg Capsule,Delayed Release(Dr/Ec) 120 mg PO BID pregabalin [Lyrica] 75 mg Capsule 75 mg PO TID 30 Days Qty: 90 0RF morphine 10 mg/5 mL solution 5 mg PO Q4H PRN (Reason: pain) 14 Days Qty: 210 0RF oxycodone 10 mg tablet 10 mg PO Q8H PRN (Reason: pain) Qty: 5 0RF Discharge Orders: Discharge Order (Routine); Ordered 03/19/25 Ordered By: Ashish Gray/Other Patient Handouts: Diabetes: Meal Planning, Type 2 Diabetes Admission Data Admit Date/Time: 03/15/25 16:32 Attending Provider: Ashish Green Admit Provider: Ant Macias Primary Care Provider: Adrien Gonzalez Other Providers: Ant Macias; Jhoana Awad; [facility]; [facility]; [facility] [place]; Sierra Salgado; Rafael Jackson; Sierra Silva; Daquan Batista; Grayson Guevara; Elmer Najera; Saravanan Li; Marcela Mcneill; Ilir Ramos; Ryan Falk; Chuyita Andres; Gunnar Cabrera; Chin AshleyDrasco; Saravanan Conley; Kathy Garcia; Margareth Hadley
[2025-03-19 11:24] VITALS: BP 113/68; PULSE 74
[2025-03-19 12:12] LABS: Hydrocodone Urine NEGATIVE ng/mL (<50); Hydromor Urine 52 ng/mL (<50); Noroxycodone Urine NEGATIVE ng/mL (<50); Oxymorph Urine NEGATIVE ng/mL (<50)
[2025-03-20] MEDS ORDERED: REMOVE & WASTE BUTRANS PATCH 1 EA EA SCH (08:59)
[2025-03-20] MEDS ORDERED: BUPRENORPHINE 5 MCG/HR TDSY TD SCH (09:00)
== END 2025-03-19 13:39 | DRG 64 ==
LOC: ED 13:50 → SUATTDRO 16:32 → 2E 16:32